=== PATIENT | female | born 1985 | race Caucasian/White ===

== ENCOUNTER 2018-05-17 16:45 | Emergency (ER) | payer OTHER ==
[2018-05-17 17:10] VITALS: RESP 18
--- NOTE | 2018-05-17 18:38 | ED ---
General Adult HPI - General Chief complaint: Abdominal Pain Stated complaint: hernia problem Source: patient Mode of arrival: ambulatory Limitations: no limitations - History of Present Illness Initial comments: Dictation was produced using [email or web address] dictation software. please excuse any grammatical, word or spelling errors. Chief Complaint: 32-year-old female withpast medical history presents with abdominal pain. History of Present Illness: Patient is a 32-year-old female. She has a history of hernia to the epigastrium. Patient was diagnosed with a ventral hernia in [place] approximately 1 year ago. Patient states she's had multiple episodes of hernia with successful reduction on 3 other occasions. Today she presents here today because her hernia did not go back. Patient states she's had pain since yesterday. She's had multiple episodes of nausea and vomiting. The ROS documented in this emergency department record has been reviewed and confirmed by me. Those systems with pertinent positive or negative responses have been documented in the HPI. All other systems are other negative and/or noncontributory. PHYSICAL EXAM: General Impression: Alert and oriented x3, acute distress secondary to pain HEENT: Normocephalic atraumatic, extra-ocular movements intact, pupils equal and reactive to light bilaterally, mucous membranes moist. Cardiovascular: Heart regular rate and rhythm, S1&S2 audible, no murmurs, rubs or gallops Chest: Lungs clear to auscultation bilaterally, no rhonchi, no wheeze, no rales Abdomen: Palpable mass to the epigastric area Musculoskeletal: Pulses present and equal in all extremities, no peripheral edema Motor: Power 5/5 bilaterally, no focal deficits noted Neurological: CN II-XII grossly intact, no focal motor or sensory deficits noted Skin: Intact with no visualized rashes Psych: Normal affect and mood ED course: 32-year-old female presents with ventral hernia. There was an attempt by myself to reduce the hernia. Reduction was unsuccessful. As upon arrival shows heart rate 109, worse vital signs within acceptable limits. CT of the abdomen and pelvis shows no evidence of abdominal wall hernia. There is also no evidence to show what that problem or masses on her right epigastric area. [id number] bedside ultrasound was obtained showing a well- circumscribed mass with similar echotexture to the surrounding skin area. This likely represents a lipoma or other benign mass. Patient given lidocaine patch. She is also given Dilaudid. Patient told to follow-up with primary care physician. She is told that she would benefit from surgery for removal of mass general surgeon if it continues to give her problems. Labs were unremarkable. Patient with for discharge. - Related Data Home Medications Medication Instructions Recorded Confirmed Ibuprofen [Motrin Ib] 600 mg PO Q6H PRN 05/17/18 05/17/18 Mirtazapine [Remeron] 45 mg PO HS 05/17/18 05/17/18 busPIRone HCl [Buspar] 10 mg PO TID 05/17/18 05/17/18 Allergies Allergy/AdvReac Type Severity Reaction Status Date / Time clarithromycin [From Biaxin] Allergy Vomiting Verified 05/17/18 18:34 morphine Allergy Rash/Hives Verified 05/17/18 18:34 Review of Systems ROS Statement: Those systems with pertinent positive or pertinent negative responses have been documented in the HPI. ROS Other: All systems not noted in ROS Statement are negative. Past Medical History Additional Past Medical History / Comment(s): hernia History of Any Multi-Drug Resistant Organisms: None Reported Past Surgical History: Appendectomy Past Psychological History: No Psychological Hx Reported Smoking Status: Current every day smoker Past Alcohol Use History: None Reported Past Drug Use History: None Reported General Exam Limitations: no limitations Course Vital Signs 05/17/18 05/17/18 17:06 19:44 Temperature 98.9 F Pulse Rate 109 H 91 Respiratory 18 18 Rate Blood Pressure 122/78 117/69 O2 Sat by Pulse 98 98 Oximetry Medical Decision Making - Lab Data Result diagrams: 05/17/18 18:45 05/17/18 18:45 Lab Results 05/17/18 05/17/18 05/17/18 Range/Units 18:45 18:45 19:00 WBC 5.5 (3.8-10.6) k/uL RBC 4.11 (3.80-5.40) m/uL Hgb 11.8 (11.4-16.0) gm/dL Hct 34.7 (34.0-46.0) % MCV 84.4 (80.0-100.0) fL MCH 28.8 (25.0-35.0) pg MCHC 34.1 (31.0-37.0) g/dL RDW 15.8 H (11.5-15.5) % Plt Count 224 (150-450) k/uL Neutrophils % 50 % Lymphocytes % 39 % Monocytes % 5 % Eosinophils % 4 % Basophils % 1 % Neutrophils # 2.8 (1.3-7.7) k/uL Lymphocytes # 2.2 (1.0-4.8) k/uL Monocytes # 0.3 (0-1.0) k/uL Eosinophils # 0.2 (0-0.7) k/uL Basophils # 0.0 (0-0.2) k/uL Sodium 140 (137-145) mmol/L Potassium 4.5 (3.5-5.1) mmol/L Chloride 111 H (98-107) mmol/L Carbon Dioxide 22 (22-30) mmol/L Anion Gap 7 mmol/L BUN 17 (7-17) mg/dL Creatinine 0.86 (0.52-1.04) mg/dL Est GFR (CKD-EPI)AfAm >90 (>60 ml/min/1.73 sqM) Est GFR (CKD-EPI)NonAf 89 (>60 ml/min/1.73 sqM) Glucose 95 (74-99) mg/dL Plasma Lactic Acid Bart (0.7-2.0) mmol/L Calcium 9.3 (8.4-10.2) mg/dL Urine HCG, Qual Not Detected (Not Detectd) 05/17/18 Range/Units 19:00 WBC (3.8-10.6) k/uL RBC (3.80-5.40) m/uL Hgb (11.4-16.0) gm/dL Hct (34.0-46.0) % MCV (80.0-100.0) fL MCH (25.0-35.0) pg MCHC (31.0-37.0) g/dL RDW (11.5-15.5) % Plt Count (150-450) k/uL Neutrophils % % Lymphocytes % % Monocytes % % Eosinophils % % Basophils % % Neutrophils # (1.3-7.7) k/uL Lymphocytes # (1.0-4.8) k/uL Monocytes # (0-1.0) k/uL Eosinophils # (0-0.7) k/uL Basophils # (0-0.2) k/uL Sodium (137-145) mmol/L Potassium (3.5-5.1) mmol/L Chloride (98-107) mmol/L Carbon Dioxide (22-30) mmol/L Anion Gap mmol/L BUN (7-17) mg/dL Creatinine (0.52-1.04) mg/dL Est GFR (CKD-EPI)AfAm (>60 ml/min/1.73 sqM) Est GFR (CKD-EPI)NonAf (>60 ml/min/1.73 sqM) Glucose (74-99) mg/dL Plasma Lactic Acid Bart 0.7 (0.7-2.0) mmol/L Calcium (8.4-10.2) mg/dL Urine HCG, Qual (Not Detectd) Disposition Clinical Impression: Mass of subcutaneous tissue Disposition: HOME SELF-CARE Condition: Good Instructions (If sedation given, give patient instructions): Soft Tissue Mass ( ED) Is patient prescribed a controlled substance at d/c from ED?: No Referrals: Salome Landon MD [Primary Care Provider] - 1-2 days Jerod Larsen MD [STAFF PHYSICIAN] - 1-2 days Time of Disposition: 21:14
[2018-05-17] MEDS ORDERED: ACETAMINOPHEN IV (For NPO) 1,000 MG in EMPTY BAG 1 BAG IVPB ONE (18:45)
[2018-05-17 18:59] LABS: Basophils % (A) 1 %; Eosinophils # (A) 0.2 k/uL (0-0.7); Eosinophils % (A) 4 %; HCT 34.7 % (34.0-46.0); HGB 11.8 gm/dL (11.4-16.0); Lymphocytes # (A) 2.2 k/uL (1.0-4.8); Lymphocytes % (A) 39 %; MCH 28.8 pg (25.0-35.0); MCHC 34.1 g/dL (31.0-37.0); MCV 84.4 fL (80.0-100.0); Mean Platelet Volume 7.3; Monocytes # (A) 0.3 k/uL (0-1.0); Monocytes % (A) 5 %; Neutrophils # (A) 2.8 k/uL (1.3-7.7); Neutrophils % (A) 50 %; Platelet Count 224 k/uL (150-450); RBC 4.11 m/uL (3.80-5.40); RDW 15.8 % (11.5-15.5); WBC 5.5 k/uL (3.8-10.6)
[2018-05-17 19:11] LABS: Anion Gap 7 mmol/L; Blood Urea Nitrogen 17 mg/dL (7-17); Calcium 9.3 mg/dL (8.4-10.2); Carbon Dioxide 22 mmol/L (22-30); Chloride 111 mmol/L (98-107); Glucose 95 mg/dL (74-99); Potassium 4.5 mmol/L (3.5-5.1); Sodium 140 mmol/L (137-145)
[2018-05-17] MEDS ORDERED: ONDANSETRON 4 MG/2 ML VIAL IVP STA (19:37)
[2018-05-17] MEDS ORDERED: HYDROmorphone 0.5 MG/0.5 ML SYRINGE IVP STA (19:49)
--- NOTE | 2018-05-17 20:39 | CT ---
EXAMINATION TYPE: CT abdomen pelvis w con DATE OF EXAM: 05/17/2018 COMPARISON: None HISTORY: HERNIA PAIN CT DLP: 995.4 mGycm Automated exposure control for dose reduction was used. TECHNIQUE: Helical acquisition of images was performed from the lung bases through the pelvis. CONTRAST: Performed without Oral Contrast and with IV Contrast, patient injected with 100 mL of Isovue 300. FINDINGS: Lung bases are clear. There is no pleural effusion. Heart size is normal. There is no pericardial eff usion. Stomach appears normal. Liver spleen pancreas appear normal. Bile ducts are not dilated. Gallbladder appears absent. There is no adrenal mass. Kidneys show satisfactory contrast opacification. There is no hydronephrosi s. Ureters are not dilated. There is no retroperitoneal adenopathy. Bladder distends smoothly. There is no inguinal hernia. There is no free fluid in the pelvis. Uterus is anteverted. There is no eviden ce of a pelvic mass. Lumbar spine is intact. There is no evidence of free air. There is no ascites. T here is no mesenteric edema. There is no evidence of free air. There is no ascites. I see no evidence of a bowel obstruction. I se e no abdominal wall hernia. There are clips apparently from appendectomy. Appendix is not seen. IMPRESSION: NEGATIVE CT SCAN OF THE ABDOMEN AND PELVIS. NO EVIDENCE OF AN ABDOMINAL HERNIA.
[2018-05-17] MEDS ORDERED: LIDOCAINE 5% PATCH TOPICAL STA (21:15)
[2018-05-17 21:42] VITALS: BP 104/58; PULSE 87; TEMP 98.3
== END 2018-05-17 21:40 | disposition home or self-care (01) ==
LOC: EC 16:45
DX: R19.06 Epigastric swelling, mass or lump (principal); R11.2 Nausea with vomiting, unspecified; R10.9 Unspecified abdominal pain; F17.200 Nicotine dependence, unspecified, uncomplicated; Z79.899 Other long term (current) drug therapy; Z88.5 Allergy status to narcotic agent; Z88.1 Allergy status to other antibiotic agents; Z90.49 Acquired absence of other specified parts of digestive tract
CPT/HCPCS: 36415; 80048; 83605; 85025; 81025; 74177; 99284; 96374; 96375 ×2; J2405; J0131; J1170; Q9967

== ENCOUNTER → 2018-08-25 | Outpatient (CLI) | payer OTHER | END | disposition home or self-care (01) | LOC: LABWHC1 08:04 | PROVIDERS: ATTEND Family Medicine | DX: F11.20 Opioid dependence, uncomplicated (principal) | CPT/HCPCS: 36415; 80358 ==

== ENCOUNTER 2018-10-15 11:38 | Emergency (ER) | payer OTHER ==
[2018-10-15 11:54] VITALS: RESP 18
[2018-10-15] MEDS ORDERED: SODIUM CHLORIDE 0.9% 1,000 ML IV STA (12:16)
[2018-10-15] MEDS ORDERED: ONDANSETRON 4 MG/2 ML VIAL IVP STA (12:16)
[2018-10-15] MEDS ORDERED: DIPH,PERTUS(ACELL)TETVAC-LF 0.5 ML VIAL IM ONE (12:25)
--- NOTE | 2018-10-15 12:56 | ED ---
General Adult HPI - General Chief complaint: Nausea/Vomiting/Diarrhea Stated complaint: Fever/vomiting Time Seen by Provider: 10/15/18 11:57 Source: patient, RN notes reviewed Mode of arrival: ambulatory Limitations: no limitations - History of Present Illness Initial comments: 32-year-old female presents emergency Department with chief complaint of nausea vomiting. Patient states that she has not felt well over the last few days. Patient states she is concerned because few days ago she had a cut from a amie piece of metal and she's not sure if this is correlating. Patient denies any medication changes. Patient denies any known fevers or chills. Patient has no dysuria no hematuria denies any chance . No chest pain or shortness br eath. Patient states she just feels fatigued, run down - Related Data Home Medications Medication Instructions Recorded Confirmed Mirtazapine [Remeron] 45 mg PO HS 05/17/18 10/15/18 busPIRone HCl [Buspar] 10 mg PO TID 05/17/18 10/15/18 Methadone HCl [Dolophine HCl] 120 mg PO DAILY 10/15/18 10/15/18 Allergies Allergy/AdvReac Type Severity Reaction Status Date / Time morphine Allergy Rash/Hives Verified 10/15/18 12:34 clarithromycin [From Biaxin] AdvReac Vomiting Verified 10/15/18 12:34 Review of Systems ROS Statement: Those systems with pertinent positive or pertinent negative responses have been documented in the HPI. ROS Other: All systems not noted in ROS Statement are negative. Past Medical History Additional Past Medical History / Comment(s): hernia History of Any Multi-Drug Resistant Organisms: None Reported Past Surgical History: Appendectomy, Cholecystectomy Additional Past Surgical History / Comment(s): lithotripsy Past Psychological History: Anxiety, Bipolar Smoking Status: Current every day smoker Past Alcohol Use History: None Reported Past Drug Use History: None Reported, Heroin General Exam Limitations: no limitations General appearance: alert, in no apparent distress Head exam: Present: atraumatic, normocephalic, normal inspection Eye exam: Present: normal appearance, PERRL, EOMI. Absent: scleral icterus, conjunctival injection, periorbital swelling ENT exam: Present: normal exam, normal oropharynx, mucous membranes moist Neck exam: Present: normal inspection, full ROM. Absent: tenderness, meningismus, lymphadenopathy Respiratory exam: Present: normal lung sounds bilaterally. Absent: respiratory distress, wheezes, rales, rhonchi, stridor Cardiovascular Exam: Present: regular rate, normal rhythm, normal heart sounds. Absent: systolic murmur, diastolic murmur, rubs, gallop, clicks GI/Abdominal exam: Present: soft, normal bowel sounds. Absent: distended, tenderness, guarding, rebound, rigid Neurological exam: Present: alert, oriented X3, CN II-XII intact Skin exam: Present: warm, dry, intact, normal color. Absent: rash Course Vital Signs 10/15/18 11:50 Temperature 98.5 F Pulse Rate 82 Respiratory 18 Rate Blood Pressure 141/79 O2 Sat by Pulse 96 Oximetry Medical Decision Making - Medical Decision Making 32-year-old female presented for generalized not feeling well. Patient has no remarkable labs. This may related to a viral illness. Patient was concern as she was cut by a piece of amie metal tetanus was updated. - Lab Data Result diagrams: 10/15/18 12:30 10/15/18 12:30 Lab Results 10/15/18 10/15/18 10/15/18 Range/Units 12:30 12:30 12:30 WBC 6.6 (3.8-10.6) k/uL RBC 4.17 (3.80-5.40) m/uL Hgb 11.8 (11.4-16.0) gm/dL Hct 35.7 (34.0-46.0) % MCV 85.7 (80.0-100.0) fL MCH 28.3 (25.0-35.0) pg MCHC 33.0 (31.0-37.0) g/dL RDW 13.8 (11.5-15.5) % Plt Count 283 (150-450) k/uL Neutrophils % 47 % Lymphocytes % 45 % Monocytes % 4 % Eosinophils % 2 % Basophils % 1 % Neutrophils # 3.1 (1.3-7.7) k/uL Lymphocytes # 3.0 (1.0-4.8) k/uL Monocytes # 0.2 (0-1.0) k/uL Eosinophils # 0.2 (0-0.7) k/uL Basophils # 0.0 (0-0.2) k/uL Sodium 144 (137-145) mmol/L Potassium 4.3 (3.5-5.1) mmol/L Chloride 111 H (98-107) mmol/L Carbon Dioxide 24 (22-30) mmol/L Anion Gap 9 mmol/L BUN 13 (7-17) mg/dL Creatinine 0.89 (0.52-1.04) mg/dL Est GFR (CKD-EPI)AfAm >90 (>60 ml/min/1.73 sqM) Est GFR (CKD-EPI)NonAf 85 (>60 ml/min/1.73 sqM) Glucose 97 (74-99) mg/dL Calcium 9.4 (8.4-10.2) mg/dL Total Bilirubin 0.2 (0.2-1.3) mg/dL AST 26 (14-36) U/L ALT 15 (9-52) U/L Alkaline Phosphatase 63 (38-126) U/L Total Protein 7.0 (6.3-8.2) g/dL Albumin 4.3 (3.5-5.0) g/dL Amylase 49 (30-110) U/L Lipase 31 (23-300) U/L Urine Color Urine Appearance (Clear) Urine pH (5.0-8.0) Ur Specific [place] (1.001-1.035) Urine Protein (Negative) Urine Glucose (UA) (Negative) Urine Ketones (Negative) Urine Blood (Negative) Urine Nitrite (Negative) Urine Bilirubin (Negative) Urine Urobilinogen (<2.0) mg/dL Ur Leukocyte Esterase (Negative) Urine RBC (0-5) /hpf Urine WBC (0-5) /hpf Ur Squamous Epith Cells (0-4) /hpf Urine Bacteria (None) /hpf Urine Mucus (None) /hpf Urine HCG, Qual Not Detected (Not Detectd) 10/15/18 Range/Units 12:30 WBC (3.8-10.6) k/uL RBC (3.80-5.40) m/uL Hgb (11.4-16.0) gm/dL Hct (34.0-46.0) % MCV (80.0-100.0) fL MCH (25.0-35.0) pg MCHC (31.0-37.0) g/dL RDW (11.5-15.5) % Plt Count (150-450) k/uL Neutrophils % % Lymphocytes % % Monocytes % % Eosinophils % % Basophils % % Neutrophils # (1.3-7.7) k/uL Lymphocytes # (1.0-4.8) k/uL Monocytes # (0-1.0) k/uL Eosinophils # (0-0.7) k/uL Basophils # (0-0.2) k/uL Sodium (137-145) mmol/L Potassium (3.5-5.1) mmol/L Chloride (98-107) mmol/L Carbon Dioxide (22-30) mmol/L Anion Gap mmol/L BUN (7-17) mg/dL Creatinine (0.52-1.04) mg/dL Est GFR (CKD-EPI)AfAm (>60 ml/min/1.73 sqM) Est GFR (CKD-EPI)NonAf (>60 ml/min/1.73 sqM) Glucose (74-99) mg/dL Calcium (8.4-10.2) mg/dL Total Bilirubin (0.2-1.3) mg/dL AST (14-36) U/L ALT (9-52) U/L Alkaline Phosphatase (38-126) U/L Total Protein (6.3-8.2) g/dL Albumin (3.5-5.0) g/dL Amylase (30-110) U/L Lipase (23-300) U/L Urine Color Yellow Urine Appearance Cloudy H (Clear) Urine pH 6.0 (5.0-8.0) Ur Specific [place] 1.019 (1.001-1.035) Urine Protein Trace H (Negative) Urine Glucose (UA) Negative (Negative) Urine Ketones Negative (Negative) Urine Blood Small H (Negative) Urine Nitrite Negative (Negative) Urine Bilirubin Negative (Negative) Urine Urobilinogen <2.0 (<2.0) mg/dL Ur Leukocyte Esterase Moderate H (Negative) Urine RBC 3 (0-5) /hpf Urine WBC 3 (0-5) /hpf Ur Squamous Epith Cells 9 H (0-4) /hpf Urine Bacteria Rare H (None) /hpf Urine Mucus Many H (None) /hpf Urine HCG, Qual (Not Detectd) Disposition Clinical Impression: Viral illness, Nausea & vomiting Disposition: HOME SELF-CARE Condition: Stable Instructions (If sedation given, give patient instructions): Acute Nausea and Vomiting (ED) Additional Instructions: Please return to the Emergency Department if symptoms worsen or any other concerns. Is patient prescribed a controlled substance at d/c from ED?: No Referrals: Salome Landon MD [Primary Care Provider] - 1-2 days Time of Disposition: 13:53
[2018-10-15 12:59] LABS: Basophils % (A) 1 %; Eosinophils # (A) 0.2 k/uL (0-0.7); Eosinophils % (A) 2 %; HCT 35.7 % (34.0-46.0); HGB 11.8 gm/dL (11.4-16.0); Lymphocytes % (A) 45 %; MCH 28.3 pg (25.0-35.0); MCV 85.7 fL (80.0-100.0); Mean Platelet Volume 6.8; Monocytes # (A) 0.2 k/uL (0-1.0); Monocytes % (A) 4 %; Neutrophils # (A) 3.1 k/uL (1.3-7.7); Neutrophils % (A) 47 %; Platelet Count 283 k/uL (150-450); RBC 4.17 m/uL (3.80-5.40); RDW 13.8 % (11.5-15.5); WBC 6.6 k/uL (3.8-10.6)
[2018-10-15 13:04] LABS: Appearance,Urine Cloudy (Clear); Bacteria,Urine Rare /hpf; Bilirubin,Urine Negative (Negative); Blood,Urine Small (Negative); Color,Urine Yellow; Glucose,Urine (UA) Negative (Negative); Ketones,Urine Negative (Negative); Leukocyte Esterase,Urine Moderate (Negative); Mucus,Urine Many /hpf; Nitrite,Urine Negative (Negative); Protein,Urine Trace (Negative); RBC,Urine 3 /hpf (0-5); Specific Gravity,Urine 1.019 (1.001-1.035); Squamous Epithelial Cell,Urine 9 /hpf (0-4); Urobilinogen,Urine <2.0 mg/dL (<2.0)
[2018-10-15 13:07] LABS: ALT 15 U/L (9-52); AST 26 U/L (14-36); African American GFR (CKD) >90 (>60 ml/min/1.73 sqM); Albumin 4.3 g/dL (3.5-5.0); Alkaline Phosphatase 63 U/L (38-126); Amylase 49 U/L (30-110); Anion Gap 9 mmol/L; Blood Urea Nitrogen 13 mg/dL (7-17); Calcium 9.4 mg/dL (8.4-10.2); Carbon Dioxide 24 mmol/L (22-30); Chloride 111 mmol/L (98-107); Glucose 97 mg/dL (74-99); Lipase 31 U/L (23-300); Potassium 4.3 mmol/L (3.5-5.1); Sodium 144 mmol/L (137-145); Total Bilirubin 0.2 mg/dL (0.2-1.3)
[2018-10-15 13:52] VITALS: BP 102/63; PULSE 63; TEMP 97.4
== END 2018-10-15 14:02 | disposition home or self-care (01) ==
LOC: EC 11:38
DX: B34.9 Viral infection, unspecified (principal); R11.2 Nausea with vomiting, unspecified; F31.9 Bipolar disorder, unspecified; F41.9 Anxiety disorder, unspecified; F17.200 Nicotine dependence, unspecified, uncomplicated; Z23 Encounter for immunization; Z79.899 Other long term (current) drug therapy; Z88.1 Allergy status to other antibiotic agents; Z88.5 Allergy status to narcotic agent; Z90.49 Acquired absence of other specified parts of digestive tract
CPT/HCPCS: 36415; 80053; 82150; 83690; 85025; 81001; 81025; 90715; 99284; 96374; 96361; 90471; J2405

== ENCOUNTER 2020-02-08 14:24 | Inpatient (IN) | payer MEDICAID, OTHER ==
[2020-02-08 14:56] LABS: Appearance,Urine Clear (Clear); Bilirubin,Urine Negative (Negative); Blood,Urine Negative (Negative); Color,Urine Yellow; Glucose,Urine (UA) Negative (Negative); Ketones,Urine Negative (Negative); Leukocyte Esterase,Urine Trace (Negative); Mucus,Urine Rare /hpf; Nitrite,Urine Negative (Negative); Protein,Urine Negative (Negative); RBC,Urine <1 /hpf (0-5); Specific Gravity,Urine 1.021 (1.001-1.035); Squamous Epithelial Cell,Urine 4 /hpf (0-4); Urobilinogen,Urine <2.0 mg/dL (<2.0); WBC,Urine 1 /hpf (0-5)
[2020-02-08 15:07] LABS: Amphetamine Screen,Urine Not Detected (NotDetected); Barbiturate Screen,Urine Not Detected (NotDetected); Benzodiazepines Screen,Urine Detected (NotDetected); Cocaine Screen,Urine Not Detected (NotDetected); Methadone Screen, Urine Detected (NotDetected); Opiate Screen,Urine Not Detected (NotDetected); Oxycodone Screen, Urine Not Detected (NotDetected); Phencyclidine Screen,Urine Not Detected (NotDetected); Tricyclic Antidepressant,Urine Detected (NotDetected); Urn Cannabinoid Scrn Not Detected (NotDetected)
[2020-02-08] MEDS ORDERED: LORazepam 1 MG TAB PO STA ×2 (15:31→20:20)
--- NOTE | 2020-02-08 18:13 | ED ---
Psych HPI - General Source: patient, EMS Mode of arrival: EMS <Tesha Vega - Last Filed: 02/09/20 10:03> <Jeancarlos Mandel - Last Filed: 02/09/20 14:01> - General Chief Complaint: Psychiatric Symptoms Stated Complaint: Mental Health Time Seen by Provider: 02/08/20 14:27 - History of Present Illness Initial Comments: 34 or female presenting today for chief complaint of suicidal ideation. Patient states she's been feeling depressed the past 2 days. She states that increased this morning she states she was looking at her roommates razor yesterday considering cutting her wrists. She states that this urge increased this morning and she had to resist. Patient denies suicide attempt. Patient denies ingestion of medications and attempted suicide. Patient states she presented here for help. She denies homicide ideation. Patient denies any recent fever, chills, shortness of breath, chest pain, back pain, abdominal pain, nausea or vomiting, numbness or tingling, dysuria or hematuria, constipation or diarrhea, headaches or visual changes, or any other complaints. (Tesha Vega) - Related Data Home Medications Medication Instructions Recorded Confirmed Mirtazapine [Remeron] 45 mg PO HS 05/17/18 02/08/20 busPIRone HCl [Buspar] 10 mg PO TID 05/17/18 02/08/20 Dicyclomine HCl 20 mg PO TID 02/08/20 02/08/20 Ergocalciferol (Vitamin D2) 50,000 unit PO TUTH 02/08/20 02/08/20 [Drisdol] Gabapentin [Neurontin] 200 mg PO TID 02/08/20 02/08/20 Levothyroxine Sodium 25 mcg PO DAILY 02/08/20 02/08/20 Pantoprazole Sodium [Protonix] 40 mg PO DAILY 02/08/20 02/08/20 QUEtiapine [SEROquel] 75 mg PO HS 02/08/20 02/08/20 Allergies Allergy/AdvReac Type Severity Reaction Status Date / Time clonidine Allergy Rash/Hives Verified 02/08/20 19:01 metoclopramide [From Reglan] Allergy Rash/Hives Verified 02/08/20 19:01 morphine Allergy Rash/Hives Verified 11/07/20 19:01 clarithromycin [From Biaxin] AdvReac Vomiting Verified 02/08/20 19:01 Review of Systems ROS Other: All systems not noted in ROS Statement are negative. <Marley Vegamanny Ronquillo - Last Filed: 02/09/20 10:03> ROS Other: All systems not noted in ROS Statement are negative. <Jeancarlos Mandel - Last Filed: 02/09/20 14:01> ROS Statement: Those systems with pertinent positive or pertinent negative responses have been documented in the HPI. Past Medical History Additional Past Medical History / Comment(s): hernia History of Any Multi-Drug Resistant Organisms: None Reported Past Surgical History: Appendectomy, Cholecystectomy Additional Past Surgical History / Comment(s): lithotripsy Past Psychological History: Anxiety, Bipolar Past Alcohol Use History: None Reported Past Drug Use History: None Reported, Heroin <SilviaTesha L - Last Filed: 02/09/20 10:03> General Exam Limitations: no limitations <EduardoTesha de dios - Last Filed: 02/09/20 10:03> - General Exam Comments Initial Comments: General: The patient is awake and alert, in no distress Eye: +3 mm pupils are equal, round and reactive to light, extra-ocular movements are intact. No nystagmus. There is normal conjunctiva bilaterally. No signs of icterus. Ears, nose, mouth and throat: There are moist mucous membranes and no oral lesions. Neck: The neck is supple, there is no tenderness or JVD. Cardiovascular: There is a regular rate and rhythm. No murmur, rub or gallop is appreciated. Respiratory: Lungs are clear to auscultation, respirations are non-labored, breath sounds are equal. No wheezes, stridor, rales, or rhonchi. Gastrointestinal: Soft, non-distended, non-tender abdomen without masses or organomegaly noted. There is no rebound or guarding present. Musculoskeletal: Normal ROM, no tenderness. Strength 5/5. Sensation intact. radial pulses equal bilaterally 2+. Neurological: A&O x 3. CN II-XII intact grossly, There are no obvious motor or sensory deficits. Coordination appears grossly intact. Speech is normal. Skin: Skin is warm and dry and no rashes or lesions are noted. Psychiatric: Cooperative, flat affect (Tesha Vega) Course <Jeancarlos Mandel - Last Filed: 02/09/20 14:01> Vital Signs 02/08/20 02/08/20 02/08/20 14:26 19:17 23:38 Temperature 98.2 F 98.3 F 98.1 F Pulse Rate 103 H 83 88 Respiratory 18 16 16 Rate Blood Pressure 137/84 118/59 112/65 O2 Sat by Pulse 94 L 96 97 Oximetry 02/09/20 02/09/20 02/09/20 06:58 08:55 13:39 Temperature 98.3 F 97.7 F 97.7 F Pulse Rate 89 92 92 Respiratory 18 14 14 Rate Blood Pressure 125/62 120/59 115/62 O2 Sat by Pulse 97 96 98 Oximetry - Reevaluation(s) Reevaluation #1: 02/09/20 14:01 The patient was evaluated by the psychiatric service and will be admitted for inpatient care and treatment. (Jeancarlos Mandel) Medical Decision Making <Tesha Vega - Last Filed: 02/09/20 10:03> - Medical Decision Making 34yo female presenting for cc of suicidal ideation with plan. Petitioned by EPS nurse. Patient will be admitted for inpatient services. patient agreeable. (Tesha Vega) - Lab Data Lab Results 02/08/20 02/08/20 Range/Units 14:50 14:50 Urine Color Yellow Urine Appearance Clear (Clear) Urine pH 6.0 (5.0-8.0) Ur Specific [place] 1.021 (1.001-1.035) Urine Protein Negative (Negative) Urine Glucose (UA) Negative (Negative) Urine Ketones Negative (Negative) Urine Blood Negative (Negative) Urine Nitrite Negative (Negative) Urine Bilirubin Negative (Negative) Urine Urobilinogen <2.0 (<2.0) mg/dL Ur Leukocyte Esterase Trace H (Negative) Urine RBC <1 (0-5) /hpf Urine WBC 1 (0-5) /hpf Ur Squamous Epith Cells 4 (0-4) /hpf Urine Mucus Rare H (None) /hpf Urine HCG, Qual Not Detected (Not Detectd) Urine Opiates Screen Not Detected (NotDetected) Ur Oxycodone Screen Not Detected (NotDetected) Urine Methadone Screen Detected H (NotDetected) Ur Propoxyphene Screen Not Detected (NotDetected) Ur Barbiturates Screen Not Detected (NotDetected) U Tricyclic Antidepress Detected H (NotDetected) Ur Phencyclidine Scrn Not Detected (NotDetected) Ur Amphetamines Screen Not Detected (NotDetected) U Methamphetamines Scrn Not Detected (NotDetected) U Benzodiazepines Scrn Detected H (NotDetected) Urine Cocaine Screen Not Detected (NotDetected) U Marijuana (THC) Screen Not Detected (NotDetected) Disposition <Tesah Vega - Last Filed: 02/09/20 10:03> <Jeancarlos Mandel - Last Filed: 02/09/20 14:01> Clinical Impression: Depression Disposition: TRANSFER TO PSYCH HOSP/UNIT Condition: Fair
[2020-02-08] MEDS: MIRTAZAPINE 45 MG TABLET PO SCH (21:55)
[2020-02-08] MEDS: busPIRone HCl 10 MG TAB PO SCH (21:56)
[2020-02-08] MEDS: DICYCLOMINE 20 MG TAB PO SCH (21:56)
[2020-02-08] MEDS: GABAPENTIN 100 MG CAP PO SCH (22:00)
[2020-02-09] MEDS ORDERED: LORazepam 1 MG TAB PO STA ×2 (06:17→11:29)
[2020-02-09] MEDS: LEVOTHYROXINE 25 MCG TAB PO SCH (06:55)
[2020-02-09] MEDS: busPIRone HCl 10 MG TAB PO SCH ×3 (10:10→20:21)
[2020-02-09] MEDS: DICYCLOMINE 20 MG TAB PO SCH ×3 (10:11→21:26)
[2020-02-09] MEDS: GABAPENTIN 100 MG CAP PO SCH ×3 (10:11→20:20)
[2020-02-09] MEDS: PANTOPRAZOLE 40 MG TABLET PO SCH (10:11)
[2020-02-09] MEDS ORDERED: METHADONE 10 MG TAB PO PRN (10:41)
[2020-02-09] MEDS ORDERED: METHADONE 10 MG TAB PO SCH (11:45)
[2020-02-09] MEDS ORDERED: ZIPRASIDONE 20 MG VIAL IM PRN (14:28)
[2020-02-09] MEDS ORDERED: MAGNESIUM HYDROXIDE 2,400 MG/10 ML CUP PO PRN (14:28)
[2020-02-09] MEDS ORDERED: METHADONE 10 MG TAB PO ONE (14:34)
[2020-02-09] MEDS: NICOTINE 7MG/24HR PATCH TRANSDERM SCH (15:31)
[2020-02-09] MEDS ORDERED: QUEtiapine 50 MG TAB PO ONE ×2 (15:45→18:00)
[2020-02-09] MEDS: QUEtiapine 100 MG TAB PO SCH (20:20)
--- NOTE | 2020-02-09 20:23 | P.CONS ---
History of Present Illness - Reason for Consult Consult date: 02/09/20 - History of Present Illness The patient was seen with educational psychologist The patient is a 34-year-old female with a PMH of EtOH abuse, opiate abuse (on methadone) who presented to the emergency room with complaints of depression and suicidal ideation. The patient was seen and evaluated on the mental health unit. The patient notes that she was recently discharged from rehab facility where she had self checked and due to her alcohol abuse. She reports her last drink was roughly 10 days ago. She had previously been drinking 1 pint of hard liquor daily. She denied any active complaints at time of interview. She denied abdominal pain, nausea, vomiting, chest pain, shortness breath, cough, fever, chills. Review of Systems Pertinent positives and negatives as discussed in HPI, a complete review of systems was performed and all other systems are negative. Past Medical History Additional Past Medical History / Comment(s): hernia History of Any Multi-Drug Resistant Organisms: None Reported Past Surgical History: Appendectomy, Cholecystectomy Additional Past Surgical History / Comment(s): lithotripsy Past Psychological History: Anxiety, Bipolar Past Alcohol Use History: None Reported Past Drug Use History: None Reported, Heroin Medications and Allergies Home Medications Medication Instructions Recorded Confirmed Type Mirtazapine [Remeron] 45 mg PO HS 05/17/18 02/08/20 History busPIRone HCl [Buspar] 10 mg PO TID 05/17/18 02/08/20 History Dicyclomine HCl 20 mg PO TID 02/08/20 02/08/20 History Ergocalciferol (Vitamin D2) 50,000 unit PO TUTH 02/08/20 02/08/20 History [Drisdol] Gabapentin [Neurontin] 200 mg PO TID 02/08/20 02/08/20 History Levothyroxine Sodium 25 mcg PO DAILY 02/08/20 02/08/20 History Pantoprazole Sodium [Protonix] 40 mg PO DAILY 02/08/20 02/08/20 History QUEtiapine [SEROquel] 75 mg PO HS 02/08/20 02/08/20 History Allergies Allergy/AdvReac Type Severity Reaction Status Date / Time clonidine Allergy Rash/Hives Verified 02/08/20 19:01 metoclopramide [From Reglan] Allergy Rash/Hives Verified 02/08/20 19:01 morphine Allergy Rash/Hives Verified 02/08/20 19:01 clarithromycin [From Biaxin] AdvReac Vomiting Verified 02/08/20 19:01 Physical Exam Vitals: Vital Signs Temp Pulse Pulse Resp BP BP Pulse Ox 02/09/20 19:02 97.8 F 02/09/20 13:57 98.7 F 94 15 144/111 97 02/09/20 13:39 97.7 F 92 14 115/62 98 02/09/20 08:55 97.7 F 92 14 120/59 96 02/09/20 06:58 98.3 F 89 18 125/62 97 02/08/20 23:38 98.1 F 88 16 112/65 97 General: non toxic, no distress, appears at stated age, morbidly obese Derm: no unusual rashes/lesions no unusual ecchymoses, warm, dry Head: atraumatic, normocephalic, symmetric Eyes: EOMI, no lid lag, anicteric sclera, pupils equal round reactive to light ENT: Nose and ears atraumatic, no thrush, no pharyngeal erythema Neck: No thyromegaly, no cervical lymphadenopathy, trachea midline, supple Mouth: no lip lesion, mucus membranes moist Cardiovascular: S1S2 reg, no murmur, positive posterior tibial pulse bilateral, no edema, capillary refill less than 2 seconds Lungs: CTA bilateral, no rhonchi, no rales , no accessory muscle use Abdominal: soft, nontender to palpation, no guarding, no appreciable organomegaly, normal bowel sounds Ext: no gross muscle atrophy, muscle strength 5 out of 5 in all 4 extremities grossly, no contractures, Neuro: CN II-XI grossly intact, light touch intact all 4 extremities, finger to nose within normal limits, Psych: Alert, oriented, appropriate affect Assessment and Plan Plan: Hypothyroidism -Continue with home Synthroid dose EtOH abuse -Encouraged patient on her decision to quit and seeking help -Start daily multivitamin History of opiate abuse -Continue with home methadone dose Tobacco abuse -Advised on the importance of cessation -Nicotine patch when necessary Depression and suicidal ideation -As per psychiatry
[2020-02-09] MEDS ORDERED: QUEtiapine 25 MG TAB PO SCH (21:00)
[2020-02-09] MEDS: MIRTAZAPINE 45 MG TABLET PO SCH (21:26)
[2020-02-10] MEDS: LEVOTHYROXINE 25 MCG TAB PO SCH (07:00)
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
[2020-02-10] MEDS ORDERED: VORTIOXETINE HYDROBROMIDE 10 MG TABLET PO SCH (09:00)
[2020-02-10] MEDS: busPIRone HCl 10 MG TAB PO SCH ×2 (09:19→20:50)
[2020-02-10] MEDS: PANTOPRAZOLE 40 MG TABLET PO SCH (09:19)
[2020-02-10] MEDS: GABAPENTIN 100 MG CAP PO SCH ×3 (09:19→21:33)
[2020-02-10] MEDS: DICYCLOMINE 20 MG TAB PO SCH ×3 (09:19→21:33)
[2020-02-10] MEDS: MULTIVITAMINS, THERA 1 EACH TAB PO SCH (09:19)
[2020-02-10] MEDS: NICOTINE 7MG/24HR PATCH TRANSDERM SCH (09:19)
[2020-02-10] MEDS: QUEtiapine 50 MG TAB PO SCH ×2 (09:19→13:01)
[2020-02-10] MEDS: METHADONE 10 MG TAB PO SCH (09:20)
[2020-02-10 10:10] LABS: Albumin 4.6 g/dL (3.5-5.0); Calcium 9.8 mg/dL (8.4-10.2); Potassium 4.4 mmol/L (3.5-5.1); Total Bilirubin 0.5 mg/dL (0.2-1.3); Total Protein 7.8 g/dL (6.3-8.2)
[2020-02-10 10:19] LABS: Basophils # (A) 0.1 k/uL (0-0.2); Basophils % (A) 1 %; Eosinophils # (A) 0.2 k/uL (0-0.7); Eosinophils % (A) 3 %; HCT 43.4 % (34.0-46.0); HGB 14.2 gm/dL (11.4-16.0); Lymphocytes # (A) 2.9 k/uL (1.0-4.8); Lymphocytes % (A) 40 %; MCH 27.2 pg (25.0-35.0); MCHC 32.8 g/dL (31.0-37.0); MCV 82.8 fL (80.0-100.0); Mean Platelet Volume 7.3; Monocytes # (A) 0.3 k/uL (0-1.0); Monocytes % (A) 4 %; Neutrophils # (A) 3.7 k/uL (1.3-7.7); Neutrophils % (A) 51 %; Platelet Count 351 k/uL (150-450); RBC 5.24 m/uL (3.80-5.40); RDW 14.2 % (11.5-15.5); WBC 7.2 k/uL (3.8-10.6)
--- NOTE | 2020-02-10 14:41 | P.PN ---
Progress Note - Text Progress Note Date: 02/10/20 Interval History: Patient was seen taking part in group this afternoon and was directable and ag reeable to speak with designer writer in the office. Patient appeared to have anxiety and a depressed affect when she is a good designer writer. She was calm and appropriate during the conversation. She mentioned several overwhelming stressors in her life which led her to come in the hospital. She spoke about having suicidal thoughts at [facility] and thought about taking her roommate's razor and cutting herself. She states that she continues to feel depressed and anxious. She states that she is having poor sleep at night. She claims that she has been going up through a lot lately at home. She also claims that she had relapsed on drugs recently. She claims that she has been trying to go to groups and participated best she can. At this time patient denies any suicidal or homical ideations, intent or plan. Patient denies any auditory, visual hallucinations. Patient denies any side effects from the medications and has been compliant with meds. Mental Status Exam: General Appearance: Patient appears to be overweight, stated age is alert, directable, and cooperative. Improving hygiene and grooming. Behavior: Patient is calmly seated without any agitated behavior. Appears to be in mild distress. Speech: Patient's speech is fluent and nonpressured. Mood/Affect: Mood is depressed and anxious, affect is congruent and constricted. Suicidality/Homicidality: Patient denies having any suicidal or homicidal ideation intent or plan. Perceptions: Patient denies any visual hallucinations and denies any auditory hallucinations Though content/process: There is no evidence of any delusional thought content and thought process is linear and goal-directed. Preoccupied with her symptoms and medications. Memory and concentration: AOX3, grossly intact for the purposes of this session Judgment and insight: Poor, Improving mildly Assessment Depressive disorder unspecified, rule out bipolar depression Anxiety disorder unspecified Opioid dependence, currently on agonist therapy Alcohol abuse nicotine dependence Plan: -Patient continues to meet criteria for inpatient psychiatric admission for symptom stabilization and safety. Patient has signed adult voluntary form and medication consent and was placed in patient's chart. -Medications: Continue with Seroquel 50 mg twice a day +150 mg daily at bedtime for mood stabilization, BuSpar increased to 30 mg twice a day for anxiety. Con tinue the Remeron 45 mg daily at bedtime for insomnia/mood, started on Zoloft 50 mg daily for mood/anxiety. Added Benadryl 25 mg daily at bedtime for insomnia. -Patient claims that she is receiving daily dosing at [facility] for methadone, she is currently on 120 mg daily. She states that she is on a higher dose. Will ask [facility] to fax confirmation of this. -Ordered EKG to check QTc interval as patient is on methadone. -When necessary Ativan and Oscardon for agitation/aggression. -NRT - nicotine patch -SW on board for discharge planning. Encouraged the patient to participate in milieu. Patient came to the unit from [facility] and can return once she is psychiatrically stable. green chain worker to reach out to [facility] to find out patient's exact methadone dosing as patient is claiming that she is on 145 mg daily.
[2020-02-10] MEDS: SERTRALINE 50 MG TAB PO SCH (15:38)
[2020-02-10 15:53] LABS: Hemoglobin A1C 5.7 % (4.0-6.0)
[2020-02-10] MEDS: LORazepam 1 MG TAB PO PRN (17:53)
[2020-02-10] MEDS: MAG HYDROX/AL HYDROX/SIMETH 30 ML CUP PO PRN (17:53)
[2020-02-10] MEDS: ACETAMINOPHEN TAB 325 MG TAB PO PRN (17:53)
[2020-02-10] MEDS: QUEtiapine 100 MG TAB PO SCH (20:49)
[2020-02-10] MEDS: MIRTAZAPINE 45 MG TABLET PO SCH (20:51)
[2020-02-10] MEDS ORDERED: diphenhydrAMINE 25 MG CAP PO SCH (21:00)
[2020-02-11] MEDS: LEVOTHYROXINE 25 MCG TAB PO SCH (06:29)
[2020-02-11] MEDS: METHADONE 10 MG TAB PO SCH (08:47)
[2020-02-11] MEDS: QUEtiapine 50 MG TAB PO SCH ×2 (08:48→15:05)
[2020-02-11] MEDS: GABAPENTIN 100 MG CAP PO SCH ×3 (08:48→20:17)
[2020-02-11] MEDS: PANTOPRAZOLE 40 MG TABLET PO SCH (08:48)
[2020-02-11] MEDS: NICOTINE 7MG/24HR PATCH TRANSDERM SCH (08:48)
[2020-02-11] MEDS: SERTRALINE 50 MG TAB PO SCH (08:48)
[2020-02-11] MEDS: MULTIVITAMINS, THERA 1 EACH TAB PO SCH (08:48)
[2020-02-11] MEDS: ERGOCALCIFEROL 50,000 UNIT CAP PO SCH (08:49)
[2020-02-11] MEDS: DICYCLOMINE 20 MG TAB PO SCH ×3 (08:49→20:18)
[2020-02-11] MEDS: busPIRone HCl 10 MG TAB PO SCH ×2 (09:35→20:17)
--- NOTE | 2020-02-11 10:29 | P.PN ---
Progress Note - Text Progress Note Date: 02/11/20 Interval History: Patient was seen coming out of her room this morning and was directable and ag reeable to speak with junior technical writer in the office. Patient appeared to have anxiety once again today. She states that she is continuing to feel depressed and more anxious and described ongoing opioid withdrawal symptoms including poor sleep, restlessness and diarrhea. She claims she is also having cravings for her methadone and was somewhat irritable with junior technical writer as to why her dose was initially decreased. Patient did have an EKG yesterday which showed her QTc interval at 457 with normal sinus rhythm. She was calm and appropriate during the conversation however did appear to be fidgeting. She states that she has not been going to groups due to the fact that other people in the group were not wearing masks and not distancing themselves. She states that she was feeling uncomfortable and wanted to remain in her room. She claims that she does not know if the medication is helping her yet. He was fairly preoccupied with having her methadone increased back to her previous dose. She today again claims that she has been having suicidal thoughts however no intent or plan and would not feel safe leaving the hospital. She states that she is having poor sleep at night and agreeable to have her Benadryl increased. Patient denies any homical ideations, intent or plan. Patient denies any auditory, visual hallucinations. Patient denies any side effects from the medications and has been compliant with meds. Mental Status Exam: General Appearance: Patient appears to be overweight, stated age is alert, directable, and somewhat irritable today. Improving hygiene and grooming. Behavior: Patient is calmly seated without any agitated behavior. Appears to be in mild distress. Somewhat irritable today Speech: Patient's speech is fluent and nonpressured. Mood/Affect: Mood is depressed and anxious, affect is congruent Suicidality/Homicidality: Patient denies having any suicidal or homicidal ideation intent or plan. Perceptions: Patient denies any visual hallucinations and denies any auditory hallucinations Though content/process: There is no evidence of any delusional thought content and thought process is linear and goal-directed. Preoccupied with her symptoms and medications. Memory and concentration: AOX3, grossly intact for the purposes of this session Judgment and insight: Poor, Improving mildly Assessment Depressive disorder unspecified, rule out bipolar depression Anxiety disorder unspecified Opioid dependence, currently on agonist therapy Alcohol abuse nicotine dependence Plan: -Patient continues to meet criteria for inpatient psychiatric admission for symptom stabilization and safety. Patient has signed adult voluntary form and medication consent and was placed in patient's chart. -Medications: Continue with Seroquel 50 mg twice a day +150 mg daily at bedtime for mood stabilization, BuSpar 30 mg twice a day for anxiety. Continue the Remeron 45 mg daily at bedtime for insomnia/mood, continue with Zoloft 50 mg daily for mood/anxiety. Increased Benadryl 50 mg daily at bedtime for insomnia. -Patient has been dosing at [facility] for methadone, she is currently on 120 mg daily, this will be increased by 10 mg today and another 10 mg tomorrow. As per faxed documentation from [facility], patient was on a previous dose of 145 mg being dosed daily. -EKG checked on 02/10/2020 - QTc interval at 457 with normal sinus rhythm -When necessary Ativan and Geodon for agitation/aggression. -NRT - nicotine patch -SW on board for discharge planning. Encouraged the patient to participate in milieu. Patient came to the unit from [facility] and can return once she is psychiatrically stable.
[2020-02-11] MEDS ORDERED: METHADONE 10 MG TAB PO ONE (10:30)
[2020-02-11] MEDS: ACETAMINOPHEN TAB 325 MG TAB PO PRN (17:43)
[2020-02-11] MEDS: LORazepam 1 MG TAB PO PRN (18:58)
[2020-02-11] MEDS: diphenhydrAMINE 50 MG CAP PO SCH (20:18)
[2020-02-11] MEDS: QUEtiapine 100 MG TAB PO SCH (20:18)
[2020-02-11] MEDS: MIRTAZAPINE 45 MG TABLET PO SCH (20:18)
[2020-02-12] MEDS: LEVOTHYROXINE 25 MCG TAB PO SCH (06:38)
[2020-02-12] MEDS: NICOTINE 7MG/24HR PATCH TRANSDERM SCH (08:41)
[2020-02-12] MEDS: SERTRALINE 50 MG TAB PO SCH (08:42)
[2020-02-12] MEDS: QUEtiapine 50 MG TAB PO SCH ×2 (08:42→12:58)
[2020-02-12] MEDS: PANTOPRAZOLE 40 MG TABLET PO SCH (08:42)
[2020-02-12] MEDS: busPIRone HCl 10 MG TAB PO SCH ×2 (08:42→21:34)
[2020-02-12] MEDS: MULTIVITAMINS, THERA 1 EACH TAB PO SCH (08:42)
[2020-02-12] MEDS: GABAPENTIN 100 MG CAP PO SCH ×3 (08:42→21:34)
[2020-02-12] MEDS ORDERED: METHADONE 10 MG TAB PO SCH (09:00)
[2020-02-12] MEDS: DICYCLOMINE 20 MG TAB PO SCH ×3 (09:34→21:36)
--- NOTE | 2020-02-12 10:17 | P.PN ---
Progress Note - Text Progress Note Date: 02/12/20 Interval History: Patient was seen taking part in group this morning and was directable and agre eable to speak with contract technical writer in the office. She states that she is continuing to feel depressed and anxious today. She claims that she is worried about where she will go when she is discharged from the hospital. She states that yesterday she found out that she would not be able to go back to [facility] as they believe that she needs more mental health treatment. Patient claims that she would not be allowed back for at least 6 months. She did claim however that her opioid withdrawal symptoms have been improving since her dose has been increasing. She appeared to be calmer today during the interview and states that she is able to go to groups more today as she feels that people are now wearing masks and she feels more comfortable in them. She today again claims that she has been having suicidal thoughts however no intent or plan and would not feel safe leaving the hospital. She states that she is having poor sleep at night and agreeable to have her Benadryl increased. Patient denies any homical ideations, intent or plan. Patient denies any auditory, visual hallucinations. Patient denies any side effects from the medications and has been compliant with meds. Mental Status Exam: General Appearance: Patient appears to be overweight, stated age is alert, directable, and less irritable today. Improving hygiene and grooming. Behavior: Patient is calmly seated without any agitated behavior. Appears to be in mild distress. Less irritable today Speech: Patient's speech is fluent and nonpressured. Mood/Affect: Mood is depressed and anxious, affect is congruent Suicidality/Homicidality: Patient denies having any suicidal or homicidal ideation intent or plan. Perceptions: Patient denies any visual hallucinations and denies any auditory hallucinations Though content/process: There is no evidence of any delusional thought content and thought process is linear and goal-directed. Preoccupied with her symptoms and medications. Memory and concentration: AOX3, grossly intact for the purposes of this session Judgment and insight: Poor, Improving mildly Assessment Depressive disorder unspecified, rule out bipolar depression Anxiety disorder unspecified Opioid dependence, currently on agonist therapy Alcohol abuse nicotine dependence Plan: -Patient continues to meet criteria for inpatient psychiatric admission for symptom stabilization and safety. Patient has signed adult voluntary form and medication consent and was placed in patient's chart. -Medications: Increased Seroquel 50 mg twice a day + 200 mg daily at bedtime for mood stabilization, BuSpar 30 mg twice a day for anxiety. Continue the Remeron 45 mg daily at bedtime for insomnia/mood, increased Zoloft 100 mg daily for mood/anxiety. Continue with Benadryl 50 mg daily at bedtime for insomnia. -Increased patient's methadone to her home dose of 145 mg being dosed daily. -EKG checked on 02/10/2020 - QTc interval at 457 with normal sinus rhythm -When necessary Atliset and Renetta for agitation/aggression. -NRT - nicotine patch -SW on board for discharge planning. Encouraged the patient to participate in milieu. Will discuss with transition social worker the plan for discharge and if patient can still go back to [facility] or will need to explore other options.
[2020-02-12] MEDS: LORazepam 1 MG TAB PO PRN ×2 (10:58→19:19)
[2020-02-12] MEDS: QUEtiapine 200 MG TAB PO SCH (21:34)
[2020-02-12] MEDS: MIRTAZAPINE 45 MG TABLET PO SCH (21:34)
[2020-02-12] MEDS: diphenhydrAMINE 50 MG CAP PO SCH (21:34)
[2020-02-13] MEDS: LEVOTHYROXINE 25 MCG TAB PO SCH (06:52)
[2020-02-13] MEDS: QUEtiapine 50 MG TAB PO SCH ×2 (08:21→13:39)
[2020-02-13] MEDS: NICOTINE 7MG/24HR PATCH TRANSDERM SCH (08:21)
[2020-02-13] MEDS: METHADONE 10 MG TAB PO SCH (08:22)
[2020-02-13] MEDS: PANTOPRAZOLE 40 MG TABLET PO SCH ×2 (08:25→08:32)
[2020-02-13] MEDS: ERGOCALCIFEROL 50,000 UNIT CAP PO SCH (08:25)
[2020-02-13] MEDS: DICYCLOMINE 20 MG TAB PO SCH ×3 (08:31→21:31)
[2020-02-13] MEDS: SERTRALINE 100 MG TAB PO SCH (08:32)
[2020-02-13] MEDS: GABAPENTIN 100 MG CAP PO SCH ×3 (08:32→20:44)
[2020-02-13] MEDS: busPIRone HCl 10 MG TAB PO SCH ×2 (08:32→20:44)
[2020-02-13] MEDS: MULTIVITAMINS, THERA 1 EACH TAB PO SCH (08:34)
--- NOTE | 2020-02-13 10:04 | P.PN ---
Progress Note - Text Progress Note Date: 02/13/20 Interval History: Patient was seen taking part in group this morning and was directable and agre eable to speak with technical proposal writer in the office. She claims that she is feeling mild improvement with regards to her depression and anxiety however continues to be preoccupied with her discharge planning. She states that she was able to sleep a little bit better last night approximately 5 hours which she felt happy about. She claims that she is continuing to have suicidal thoughts however they are decreasing in intensity and she states that she is using coping skills to distract herself which she is learning in group. She did claim also that she had 2 instances in the past 2 days where she forgot the name of her medications and also the name of [facility] which he found bizarre. She today again claims that she has been having suicidal thoughts however no intent or plan and would not feel safe leaving the hospital. Patient also claimed that she was feeling "swollen" today and states that she has been drinking approximately 5-6 melchor per day. Patient denies any homical ideations, intent or plan. Patient denies any auditory, visual hallucinations. Patient denies any side effects from the medications and has been compliant with meds. Mental Status Exam: General Appearance: Patient appears to be overweight, stated age is alert, directable, and attempts to be more cooperative. Improving hygiene and grooming. Behavior: Patient is calmly seated without any agitated behavior. Appears to be in mild distress. Speech: Patient's speech is fluent and nonpressured. Mood/Affect: Mood is depressed and anxious, mildly improving, affect is congruent Suicidality/Homicidality: Patient denies having any suicidal or homicidal ideation intent or plan. Perceptions: Patient denies any visual hallucinations and denies any auditory hallucinations Though content/process: There is no evidence of any delusional thought content and thought process is linear and goal-directed. Preoccupied with her symptoms and medications. Memory and concentration: AOX3, grossly intact for the purposes of this session Judgment and insight: Poor, Improving mildly Assessment Depressive disorder unspecified, rule out bipolar depression Anxiety disorder unspecified Opioid dependence, currently on agonist therapy Alcohol abuse nicotine dependence Plan: -Patient continues to meet criteria for inpatient psychiatric admission for symptom stabilization and safety. Patient has signed adult voluntary form and medication consent and was placed in patient's chart. -Medications: Continue with Seroquel 50 mg twice a day + 200 mg daily at bedtime for mood stabilization, BuSpar 30 mg twice a day for anxiety. Continue the Remeron 45 mg daily at bedtime for insomnia/mood, continue with Zoloft 100 mg daily for mood/anxiety. Continue with Benadryl 50 mg daily at bedtime for insomnia. -Continue with methadone at her home dose of 145 mg being dosed daily. -EKG checked on 02/10/2020 - QTc interval at 457 with normal sinus rhythm -Ordered basic metabolic panel to check electrolytes, advised patient to cut back on her water intake today to 3 cups per day. -When necessary Ativan and Geodon for agitation/aggression. -NRT - nicotine patch -SW on board for discharge planning. Encouraged the patient to participate in milieu. Will discuss with secondary social studies teacher the plan for discharge and if patient can still go back to [facility] or will need to explore other options.
[2020-02-13 12:28] LABS: Calcium 9.7 mg/dL (8.4-10.2); Potassium 4.5 mmol/L (3.5-5.1)
[2020-02-13] MEDS: ACETAMINOPHEN TAB 325 MG TAB PO PRN (16:03)
[2020-02-13] MEDS: diphenhydrAMINE 50 MG CAP PO SCH (20:44)
[2020-02-13] MEDS: QUEtiapine 200 MG TAB PO SCH (20:44)
[2020-02-13] MEDS: MIRTAZAPINE 45 MG TABLET PO SCH (21:31)
[2020-02-14] MEDS: LEVOTHYROXINE 25 MCG TAB PO SCH (06:44)
[2020-02-14] MEDS: SERTRALINE 100 MG TAB PO SCH (08:15)
[2020-02-14] MEDS: busPIRone HCl 10 MG TAB PO SCH (08:15)
[2020-02-14] MEDS: MULTIVITAMINS, THERA 1 EACH TAB PO SCH (08:15)
[2020-02-14] MEDS: GABAPENTIN 100 MG CAP PO SCH ×3 (08:15→21:14)
[2020-02-14] MEDS: DICYCLOMINE 20 MG TAB PO SCH ×3 (08:15→21:14)
[2020-02-14] MEDS: QUEtiapine 50 MG TAB PO SCH ×2 (08:15→13:43)
[2020-02-14] MEDS: NICOTINE 7MG/24HR PATCH TRANSDERM SCH (08:15)
[2020-02-14] MEDS: METHADONE 10 MG TAB PO SCH (08:16)
[2020-02-14] MEDS: PANTOPRAZOLE 40 MG TABLET PO SCH (09:03)
[2020-02-14] MEDS: LORazepam 0.5 MG TAB PO PRN (12:01)
--- NOTE | 2020-02-14 13:00 | P.PN ---
Progress Note - Text Progress Note Date: 02/14/20 Interval History: Patient was seen wandering the hallways this morning and was directable and ag reeable to speak with board writer in the office. She claims that she is feeling mild improvement with regards to her depression and anxiety and claims that she wants to continue on with the Zoloft and have it increased over the weekend. She states that she was not having the best day today as she found out that she was not allowed back at [facility] and will probably need to go to [facility] which she is unsure about. She claims that she'll be talking to somebody about that today. She claims that she feels that her anxiety is still not under control and continues to have some fleeting thoughts of suicide. Nurse Educator spoke with patient about starting lithium for suicidal thoughts and a mood adjunct and patient was agreeable to it. She states that she was able to sleep a little bit better last night approximately 5 hours which she felt happy about. He claims that she has been trying to go to groups and focus on her recovery. Once again today patient states that she still feels swollen even though she has been cutting back on her fluid intake. Patient denies any homical ideations, intent or plan. Patient denies any auditory, visual hallucinations. Patient denies any side effects from the medications and has been compliant with meds. Mental Status Exam: General Appearance: Patient appears to be overweight, stated age is alert, directable, and attempts to be more cooperative. Improving hygiene and grooming. Behavior: Patient is calmly seated without any agitated behavior. Appears to be in mild distress. Speech: Patient's speech is fluent and nonpressured. Mood/Affect: Mood is depressed and anxious, mildly improving, affect is congruent Suicidality/Homicidality: Patient denies having any homicidal ideation intent or plan. Continues to have fleeting thoughts of suicide. Perceptions: Patient denies any visual hallucinations and denies any auditory hallucinations Though content/process: There is no evidence of any delusional thought content and thought process is linear and goal-directed. Preoccupied with her symptoms and medications. Memory and concentration: AOX3, grossly intact for the purposes of this session Judgment and insight: Poor, Improving mildly Assessment Depressive disorder unspecified, rule out bipolar depression Anxiety disorder unspecified Opioid dependence, currently on agonist therapy Alcohol abuse nicotine dependence Plan: -Patient continues to meet criteria for inpatient psychiatric admission for symptom stabilization and safety. Patient has signed adult voluntary form and medication consent and was placed in patient's chart. -Medications: Continue with Seroquel 50 mg twice a day + 200 mg daily at bedtime for mood stabilization, discontinued BuSpar due to ineffectiveness. Continue the Remeron 45 mg daily at bedtime for insomnia/mood, increased Zoloft 150 mg daily for mood/anxiety. Continue with Benadryl 50 mg daily at bedtime for insomnia. Added lithium 150 mg twice a day for mood adjunct/suicidal thoughts. -Continue with methadone at her home dose of 145 mg being dosed daily. -EKG checked on 02/10/2020 - QTc interval at 457 with normal sinus rhythm -Reviewed to [facility], no significant abnormalities are seen, advised patient to cut back on her water intake today to 3 cups per day. Will ask nurse to contact sound physician group to give further recommendations on patient's new onset edema. -When necessary Ativan and Geodon for agitation/aggression. -NRT - nicotine patch -SW on board for discharge planning. Encouraged the patient to participate in milieu. She has not allowed back at [facility] however we are currently exploring the option for her to go to [facility]. Likely discharge next week.
[2020-02-14] MEDS: LITHIUM CARBONATE 150 MG CAP PO SCH ×2 (13:43→20:35)
[2020-02-14] MEDS: ACETAMINOPHEN TAB 325 MG TAB PO PRN (13:43)
--- NOTE | 2020-02-14 16:23 | P.PN ---
Subjective Progress Note Date: 02/14/20 Principal diagnosis: edema Patient is a 34-year-old female with a history of bipolar disorder, prior substance abuse, alcohol abuse, and hypothyroidism who is currently in the [facility] unit. Patient seen and examined at bedside at the request of the attending physician. She reports that over the last 3 days she has had increased swelling in her bilateral upper and lower extremities. She reports the swelling is the worst in her legs in the morning and gets better as she walks on them. She denies any chest pain or shortness of breath. She has never had anything similar prior. She denies any recent cough, cold, fever, flu. She takes all her medications as prescribed. General: Nontoxic, no distress, appears at stated age Derm: Diffuse erythema-patient states it's related to taking a warm shower recently warm, dry Head: atraumatic, normocephalic, symmetric Eyes: EOMI, no lid lag, anicteric sclera Mouth: no lip lesion, mucus membranes moist Cardiovascular: S1S2 reg, no murmur, positive posterior tibial pulse bilateral, Lungs: CTA bilateral, no rhonchi, no rales , no accessory muscle use Abdominal: soft, nontender to palpation, no guarding, no appreciable organomegaly Ext: no gross muscle atrophy, nonpitting edema bilateral upper and lower extremities, no contractures Neuro: CN II-XI grossly intact, no focal neuro deficits Psych: Alert, oriented, appropriate affect Diffuse anasarca -Check echocardiogram, liver ultrasound, urine protein, spot urine microalbumin -Check renal profile -Continue to monitor -Hydrochlorothiazide for symptom control Hypothyroidism with elevated TSH - increase levothyroxine ETOH abuse - asses for cirrhosis - cessation HX of IVDA Will follow closely Objective - Vital Signs Vital signs: Vital Signs Temp 98.0 F 02/14/20 06:23 Pulse 96 02/14/20 08:20 Resp 17 02/14/20 06:23 BP 118/72 02/14/20 08:20 Pulse Ox 97 02/14/20 06:23 - Labs CBC & Chem 7: 02/10/20 09:02 02/13/20 11:37
[2020-02-14] MEDS: hydroCHLOROthiazide 25 MG TAB PO SCH (16:25)
[2020-02-14 17:25] LABS: INR 0.9 (<1.2); Prothrombin Time 9.6 sec (9.0-12.0)
[2020-02-14 17:27] LABS: Albumin 4.6 g/dL (3.5-5.0); Calcium 9.8 mg/dL (8.4-10.2); Potassium 4.6 mmol/L (3.5-5.1); Total Bilirubin 0.3 mg/dL (0.2-1.3); Total Protein 7.8 g/dL (6.3-8.2)
[2020-02-14 17:41] LABS: Appearance,Urine Cloudy (Clear); Bilirubin,Urine Negative (Negative); Blood,Urine Negative (Negative); Color,Urine Yellow; Glucose,Urine (UA) Negative (Negative); Ketones,Urine Negative (Negative); Leukocyte Esterase,Urine Negative (Negative); Mucus,Urine Occasional /hpf; Nitrite,Urine Negative (Negative); PH, Urine 5.5 (5.0-8.0); Protein,Urine Negative (Negative); Specific Gravity,Urine 1.023 (1.001-1.035); Squamous Epithelial Cell,Urine 1 /hpf (0-4); Urobilinogen,Urine <2.0 mg/dL (<2.0); WBC,Urine 1 /hpf (0-5)
--- NOTE | 2020-02-14 18:40 | US ---
EXAMINATION TYPE: US abdomen limited DATE OF EXAM: 02/14/2020 COMPARISON: NONE CLINICAL HISTORY: ascities. No fluid visualized. IMPRESSION: There is no evidence of abdominal ascites fluid.
[2020-02-14] MEDS: QUEtiapine 200 MG TAB PO SCH (20:35)
[2020-02-14] MEDS: diphenhydrAMINE 50 MG CAP PO SCH (20:35)
[2020-02-14] MEDS: MIRTAZAPINE 45 MG TABLET PO SCH (20:36)
[2020-02-15 04:18] LABS: Urine Creatinine 149.9 mg/dL
[2020-02-15] MEDS: LEVOTHYROXINE 75 MCG TAB PO SCH (06:17)
[2020-02-15] MEDS: METHADONE 10 MG TAB PO SCH (08:15)
[2020-02-15] MEDS: LITHIUM CARBONATE 150 MG CAP PO SCH ×2 (08:15→21:09)
[2020-02-15] MEDS: DICYCLOMINE 20 MG TAB PO SCH ×3 (08:15→21:09)
[2020-02-15] MEDS: GABAPENTIN 100 MG CAP PO SCH ×3 (08:15→21:10)
[2020-02-15] MEDS: hydroCHLOROthiazide 25 MG TAB PO SCH (08:16)
[2020-02-15] MEDS: QUEtiapine 50 MG TAB PO SCH ×2 (08:16→13:42)
[2020-02-15] MEDS: PANTOPRAZOLE 40 MG TABLET PO SCH (08:16)
[2020-02-15] MEDS: MULTIVITAMINS, THERA 1 EACH TAB PO SCH (08:16)
[2020-02-15] MEDS: SERTRALINE 50 MG TAB PO SCH (08:16)
[2020-02-15] MEDS: NICOTINE 7MG/24HR PATCH TRANSDERM SCH (08:16)
--- NOTE | 2020-02-15 10:21 | P.PN ---
Progress Note - Text Progress Note Date: 02/15/20 Interval history: Patient was seen attending group and was directable and agreeable to speak with greeting card writer. Patient reports that she has been feeling increasingly irritable. She is unsure if this is a side effect of lithium. She reports that she has been getting angry at "the littlest things and other peers." She states that when she is angry she clenches her fists really tight and feels hot all over. She denies any outbursts or violence. She also reports that during this time she has an urge to self-harm. She denies any suicidal ideation, intention, and/or plan. She reports no homicidal ideation. She denies any auditory or visual hallucinations. She denies any paranoia or other delusions. She has been adherent with her medications and is otherwise unsure of any other side effects aside from her increased irritability. She was informed that lithium is not known to increase in irritability or anger. Mental status exam: General Appearance: Patient appears to be her stated age, obese body habitus, with fair hygiene and grooming. Behavior: No agitated behavior. Patient is calm and directable Speech: Patient's speech is fluent and nonpressured. Mood/Affect: Mood is irritable, affect is incongruent, euthymic to bright, with appropriate range. Suicidality/Homicidality: Patient denies having any suicidal or homicidal ideation intent or plan. Perceptions: Patient denies any auditory or visual hallucinations. Though content/process: He reports urges of self-harm but otherwise is not reporting any delusional thought content and that her thought process appears to be linear and logical in short conversation. Memory and concentration: AOX3, grossly intact for the purposes of this session Judgment and insight: improving mildly Assessment/Plan: Continue with current diagnosis. Patient continues to meet criteria for inpatient psychiatric admission for symptom stabilization and safety.Patient will be maintained on current psychotropic medication regimen. Monitor for medication compliance and for any psychotropic medication side effects. Will continue to monitor ongoing response to treatment. Encouraged participation in milieu.
[2020-02-15] MEDS: LORazepam 0.5 MG TAB PO PRN ×2 (11:04→19:18)
--- NOTE | 2020-02-15 14:41 | ECHOF ---
Referral Reason:edema MEASUREMENTS -------- HEIGHT: 165.1 cm WEIGHT: 127.0 kg BP: 94/55 RVIDd: 2.8 cm (< 3.3) IVSd: 1.0 cm (0.6 - 1.1) LVIDd: 3.6 cm (3.9 - 5.3) LVPWd: 1.1 cm (0.6 - 1.1) IVSs: 1.4 cm LVIDs: 2.5 cm LVPWs: 1.7 cm LA Diam: 3.1 cm (2.7 - 3.8) Ao Diam: 2.8 cm (2.0 - 3.7) AV Cusp: 1.7 cm (1.5 - 2.6) MV EXCURSION: 10.541 mm (> 18.000) MV EF SLOPE: 55 mm/s (70 - 150) EPSS: 0.9 cm MV E Isidoro: 0.86 m/s MV DecT: 236 ms MV A Isidoro: 0.67 m/s MV E/A Ratio: 1.29 FINDINGS -------- Sinus rhythm. This was a technically adequate study. The left ventricular size is normal. Left ventricular wall thickness is normal. Overall left vent ricular systolic function is normal with, an EF between 60 - 65 %. The right ventricle is normal in size. The left atrial size is normal. The right atrium is normal in size. Interatrial and interventricular septum intact. The aortic valve is trileaflet and appears structurally normal. The mitral valve is normal. The tricuspid valve appears structurally normal. The pulmonic valve was not well visualized. The aortic root size is normal. Normal inferior vena cava with normal inspiratory collapse consistent with estimated right atrial pre ssure of 5 mmHg. There is no pericardial effusion. CONCLUSIONS -------- 1. The left ventricular size is normal. 2. Left ventricular wall thickness is normal. 3. Overall left ventricular systolic function is normal with, an EF between 60 - 65 %. 4. There is no pericardial effusion. FRONT DESK ADMINISTRATOR: Emperatriz Hutchinson MIL[place]
[2020-02-15] MEDS: diphenhydrAMINE 50 MG CAP PO SCH (21:09)
[2020-02-15] MEDS: QUEtiapine 200 MG TAB PO SCH (21:09)
[2020-02-15] MEDS: MIRTAZAPINE 45 MG TABLET PO SCH (21:09)
[2020-02-16] MEDS: LEVOTHYROXINE 75 MCG TAB PO SCH (06:19)
[2020-02-16] MEDS: hydroCHLOROthiazide 25 MG TAB PO SCH (08:06)
[2020-02-16] MEDS: QUEtiapine 50 MG TAB PO SCH ×2 (08:06→13:05)
[2020-02-16] MEDS: LITHIUM CARBONATE 150 MG CAP PO SCH ×2 (08:06→20:12)
[2020-02-16] MEDS: PANTOPRAZOLE 40 MG TABLET PO SCH (08:06)
[2020-02-16] MEDS: MULTIVITAMINS, THERA 1 EACH TAB PO SCH (08:06)
[2020-02-16] MEDS: GABAPENTIN 100 MG CAP PO SCH ×3 (08:06→20:10)
[2020-02-16] MEDS: NICOTINE 7MG/24HR PATCH TRANSDERM SCH (08:06)
[2020-02-16] MEDS: SERTRALINE 50 MG TAB PO SCH (08:06)
[2020-02-16] MEDS: DICYCLOMINE 20 MG TAB PO SCH ×3 (08:06→20:11)
[2020-02-16] MEDS: METHADONE 10 MG TAB PO SCH (08:07)
[2020-02-16 09:02] LABS: Albumin 4.7 g/dL (3.5-5.0); Calcium 9.9 mg/dL (8.4-10.2); Magnesium 1.8 mg/dL (1.6-2.3); Potassium 4.4 mmol/L (3.5-5.1); Total Bilirubin 0.5 mg/dL (0.2-1.3); Total Protein 8.1 g/dL (6.3-8.2)
--- NOTE | 2020-02-16 10:02 | P.PN ---
Progress Note - Text Progress Note Date: 02/16/20 Interval history: Patient was seen resting in bed and was agreeable to speak with the fiction and nonfiction prose writer in her room with no one else present. Patient reports that she feels less irritable than yesterday. She states that she feels more tired today. She reports that she did have an episode of anger last night but has been able to maintain and practiced her coping skills. She denies any outbursts or violence. She denies any thoughts of self-harm. She reports no suicidal or homicidal ideation, intention, and/or plan. She denies any visual or auditory hallucinations. She denies any paranoia or other delusions. She has been adherent with her medications as pointing any significant side effects at this time. The patient did have a echocardiogram as the patient has been experiencing since increased swelling. The echo revealed normal left ventricular systolic function with an ejection fraction between 60-65%. No signs of pericardial effusion. Mental status exam: General Appearance: Patient appears to be her stated age, obese body habitus, with fair hygiene and grooming. Behavior: No agitated behavior. Patient is calm and directable Speech: Patient's speech is fluent and nonpressured. Mood/Affect: Mood is irritable, affect is incongruent, euthymic to bright, with appropriate range. Suicidality/Homicidality: Patient denies having any suicidal or homicidal ideation intent or plan. Perceptions: Patient denies any auditory or visual hallucinations. Though content/process: Patient is not reporting any delusions or abnormal thought content. Thought process is linear and logical in short conversation. Memory and concentration: AOX3, grossly intact for the purposes of this session Judgment and insight: improving mildly Assessment/Plan: Continue with current diagnosis. Patient continues to meet criteria for inpatient psychiatric admission for symptom stabilization and safety. Patient will be maintained on current psychotropic medication regimen. Monitor for medication compliance and for any psychotropic medication side effects. Will continue to monitor ongoing response to treatment. Encouraged participation in milieu.
[2020-02-16] MEDS: LORazepam 0.5 MG TAB PO PRN (13:05)
[2020-02-16] MEDS: MAG HYDROX/AL HYDROX/SIMETH 30 ML CUP PO PRN (16:53)
[2020-02-16] MEDS: diphenhydrAMINE 50 MG CAP PO SCH (20:11)
[2020-02-16] MEDS: MIRTAZAPINE 45 MG TABLET PO SCH (20:11)
[2020-02-16] MEDS: QUEtiapine 200 MG TAB PO SCH (21:31)
[2020-02-17] MEDS: LEVOTHYROXINE 75 MCG TAB PO SCH (06:38)
[2020-02-17] MEDS: LITHIUM CARBONATE 150 MG CAP PO SCH (08:34)
[2020-02-17] MEDS: SERTRALINE 50 MG TAB PO SCH (08:34)
[2020-02-17] MEDS: hydroCHLOROthiazide 25 MG TAB PO SCH (08:34)
[2020-02-17] MEDS: QUEtiapine 50 MG TAB PO SCH ×2 (08:34→13:21)
[2020-02-17] MEDS: GABAPENTIN 100 MG CAP PO SCH ×3 (08:34→21:45)
[2020-02-17] MEDS: MULTIVITAMINS, THERA 1 EACH TAB PO SCH (08:35)
[2020-02-17] MEDS: METHADONE 10 MG TAB PO SCH (08:35)
[2020-02-17] MEDS: DICYCLOMINE 20 MG TAB PO SCH ×3 (08:35→21:45)
[2020-02-17] MEDS: PANTOPRAZOLE 40 MG TABLET PO SCH (08:35)
[2020-02-17] MEDS: NICOTINE 7MG/24HR PATCH TRANSDERM SCH (08:36)
[2020-02-17] MEDS ORDERED: SERTRALINE 50 MG TAB PO STA (09:43)
[2020-02-17] MEDS: lamoTRIgine 25 MG TAB PO SCH ×2 (10:01→21:45)
--- NOTE | 2020-02-17 10:03 | P.PN ---
Progress Note - Text Progress Note Date: 02/17/20 Interval History: Patient was seen lying in her bed this morning and was directable and agreeable to speak with casualty underwriter in the office. She claims that she did not feel well over the weekend after starting the lithium. She states that over the weekend she is feeling more anxious and having more thoughts of suicide. She was requesting to have the medication discontinued. She states that she does not know if she feels on the Zoloft however is willing to have it increased once again. She cla ims that she is experiencing more anxiety lately. She claims that she was able to sleep approximately 4-5 hours last night. Patient asked several questions about her medications and casualty underwriter explained pros and cons about the different medications and also side effects and patient was agreeable to be started on Lamictal. SHe claims that she has been trying to go to groups and focus on her recovery. She claims that her edema has decreased significantly since being started on the diuretic. Patient denies any homical ideations, intent or plan. Patient denies any auditory, visual hallucinations. Patient denies any side effects from the medications and has been compliant with meds. Mental Status Exam: General Appearance: Patient appears to be overweight, stated age is alert, directable, and attempts to be more cooperative. Improving hygiene and grooming. Behavior: Patient is calmly seated without any agitated behavior. Appears to be in mild distress. Speech: Patient's speech is fluent and nonpressured. Mood/Affect: Mood is depressed and anxious, affect is congruent Suicidality/Homicidality: Patient denies having any homicidal ideation intent or plan. Continues to have fleeting thoughts of suicide, no intent or plan. Perceptions: Patient denies any visual hallucinations and denies any auditory hallucinations Though content/process: There is no evidence of any delusional thought content and thought process is linear and goal-directed. Preoccupied with her symptoms and medications. Memory and concentration: AOX3, grossly intact for the purposes of this session Judgment and insight: Poor, Improving mildly Assessment Depressive disorder unspecified, rule out bipolar depression Anxiety disorder unspecified Opioid dependence, currently on agonist therapy Alcohol abuse nicotine dependence Plan: -Patient continues to meet criteria for inpatient psychiatric admission for symptom stabilization and safety. Patient has signed adult voluntary form and medication consent and was placed in patient's chart. -Medications: Continue with Seroquel 50 mg twice a day + 200 mg daily at bedtime for mood stabilization. Consider restarting BuSpar tomorrow. Continue the Remeron 45 mg daily at bedtime for insomnia/mood, increased Zoloft 200 mg daily for mood/anxiety. Continue with Benadryl 50 mg daily at bedtime for insomnia. Discontinue lithium. -Continue with methadone at her home dose of 145 mg being dosed daily. -EKG checked on 02/10/2020 - QTc interval at 457 with normal sinus rhythm -Reviewed to [facility], urine analysis and no significant abnormalities are seen. Echocardiogram was negative, and abdominal ultrasound did not reveal any ascites. Continue with hydrochlorothiazide as per internal medicine. -When necessary Ativan and Geodon for agitation/aggression. -NRT - nicotine patch -SW on board for discharge planning. Encouraged the patient to participate in milieu. She has not allowed back at [facility] however we are currently exploring the option for her to go to [facility]. Likely discharge once patient's symptoms are improved.
[2020-02-17] MEDS: LORazepam 0.5 MG TAB PO PRN (13:21)
[2020-02-17] MEDS: MAG HYDROX/AL HYDROX/SIMETH 30 ML CUP PO PRN (13:51)
[2020-02-17] MEDS ORDERED: LOPERAMIDE 2 MG CAP PO STA (16:40)
[2020-02-17] MEDS: MIRTAZAPINE 45 MG TABLET PO SCH (21:45)
[2020-02-17] MEDS: diphenhydrAMINE 50 MG CAP PO SCH (21:45)
[2020-02-17] MEDS: QUEtiapine 200 MG TAB PO SCH (21:45)
[2020-02-18] MEDS: LEVOTHYROXINE 75 MCG TAB PO SCH (06:28)
[2020-02-18] MEDS: METHADONE 10 MG TAB PO SCH (08:07)
[2020-02-18] MEDS: MULTIVITAMINS, THERA 1 EACH TAB PO SCH (09:06)
[2020-02-18] MEDS: QUEtiapine 50 MG TAB PO SCH ×2 (09:06→13:37)
[2020-02-18] MEDS: GABAPENTIN 100 MG CAP PO SCH ×3 (09:06→20:37)
[2020-02-18] MEDS: hydroCHLOROthiazide 25 MG TAB PO SCH (09:06)
[2020-02-18] MEDS: lamoTRIgine 25 MG TAB PO SCH ×2 (09:06→20:38)
[2020-02-18] MEDS: PANTOPRAZOLE 40 MG TABLET PO SCH (09:06)
[2020-02-18] MEDS: NICOTINE 7MG/24HR PATCH TRANSDERM SCH (09:06)
[2020-02-18] MEDS: DICYCLOMINE 20 MG TAB PO SCH ×3 (09:08→20:38)
[2020-02-18] MEDS: ERGOCALCIFEROL 50,000 UNIT CAP PO SCH (09:08)
[2020-02-18] MEDS: SERTRALINE 100 MG TAB PO SCH (09:12)
--- NOTE | 2020-02-18 10:22 | P.PN ---
Progress Note - Text Progress Note Date: 02/18/20 Interval History: Patient was seen sitting in on group this morning and was directable and agree able to speak with commercial loan underwriter in the office. She claims that she is feeling nauseous for the past day or so and claims that she vomited 3 times last night. She claims that her covid test was negative. She claims that she has been trying to remain optimistic in terms of her treatment on the unit and has been trying to go to the 2 morning groups and work on her coping skills and talk about her stressors. He claims that her suicidal thoughts have been improving and she denied any current thoughts at this time. She continues to be focused on her medications. She was agreeable to have her Lamictal increased tonight. She claims that she was able to sleep approximately 5 hours last night. She claims that her edema has decreased significantly. Patient denies any homical ideations, intent or plan. Patient denies any auditory, visual hallucinations. Patient denies any side effects from the medications and has been compliant with meds. Mental Status Exam: General Appearance: Patient appears to be overweight, stated age is alert, directable, and attempts to be more cooperative. Improving hygiene and grooming. Behavior: Patient is calmly seated without any agitated behavior. Appears to be in mild distress secondary to nausea. Speech: Patient's speech is fluent and nonpressured. Mood/Affect: Mood is depressed and anxious, improving mildly, affect is congruent and constricted Suicidality/Homicidality: Patient denies having any homicidal ideation intent or plan. No suicidal thoughts currently, no intent or plan. Perceptions: Patient denies any visual hallucinations and denies any auditory hallucinations Though content/process: There is no evidence of any delusional thought content and thought process is linear and goal-directed. Preoccupied with her symptoms and medications. Memory and concentration: AOX3, grossly intact for the purposes of this session Judgment and insight: Poor, Improving mildly Assessment Depressive disorder unspecified, rule out bipolar depression Anxiety disorder unspecified Opioid dependence, currently on agonist therapy Alcohol abuse nicotine dependence Plan: -Patient continues to meet criteria for inpatient psychiatric admission for symptom stabilization and safety. Patient has signed adult voluntary form and medication consent and was placed in patient's chart. -Medications: Continue with Seroquel 50 mg twice a day + 200 mg daily at bedtime for mood stabilization. Continue the Remeron 45 mg daily at bedtime for insomnia/mood, Zoloft 200 mg daily for mood/anxiety. Continue with Benadryl 50 mg daily at bedtime for insomnia. Increased Lamictal to 50 mg twice a day for mood stabilization/depression. -Added Zofran when necessary for nausea. Ordered a sick metabolic panel along with CBC with differential given patient's new onset nausea. We'll consider contacting medicine if symptom does not improve. -Continue with methadone at her home dose of 145 mg being dosed daily. -EKG checked on 02/10/2020 - QTc interval at 457 with normal sinus rhythm -Echocardiogram was negative, and abdominal ultrasound did not reveal any ascites. Continue with hydrochlorothiazide as per internal medicine. -When necessary Ativan and Geodon for agitation/aggression. -NRT - nicotine patch -SW on board for discharge planning. Encouraged the patient to participate in milieu. She has not allowed back at [facility] at this time. Patient will need to go to a sober house upon discharge with daily methadone dosing.
[2020-02-18] MEDS: ONDANSETRON 4 MG TAB PO PRN ×2 (10:34→17:45)
[2020-02-18 10:53] LABS: Basophils # (A) 0.1 k/uL (0-0.2); Basophils % (A) 1 %; Eosinophils # (A) 0.2 k/uL (0-0.7); Eosinophils % (A) 3 %; HGB 14.3 gm/dL (11.4-16.0); Lymphocytes # (A) 2.4 k/uL (1.0-4.8); Lymphocytes % (A) 32 %; MCH 27.1 pg (25.0-35.0); MCHC 32.5 g/dL (31.0-37.0); MCV 83.6 fL (80.0-100.0); Monocytes # (A) 0.4 k/uL (0-1.0); Monocytes % (A) 5 %; Neutrophils # (A) 4.3 k/uL (1.3-7.7); Neutrophils % (A) 57 %; Platelet Count 289 k/uL (150-450); RBC 5.27 m/uL (3.80-5.40); RDW 14.1 % (11.5-15.5); WBC 7.5 k/uL (3.8-10.6)
[2020-02-18 10:58] LABS: Calcium 9.8 mg/dL (8.4-10.2); Potassium 4.1 mmol/L (3.5-5.1)
[2020-02-18] MEDS: LORazepam 0.5 MG TAB PO PRN (13:38)
[2020-02-18] MEDS: diphenhydrAMINE 50 MG CAP PO SCH (20:37)
[2020-02-18] MEDS: QUEtiapine 200 MG TAB PO SCH (20:37)
[2020-02-18] MEDS: MIRTAZAPINE 45 MG TABLET PO SCH (20:38)
[2020-02-19] MEDS: LEVOTHYROXINE 75 MCG TAB PO SCH (06:29)
[2020-02-19] MEDS: NICOTINE 7MG/24HR PATCH TRANSDERM SCH (08:50)
[2020-02-19] MEDS: METHADONE 10 MG TAB PO SCH (08:54)
[2020-02-19] MEDS: DICYCLOMINE 20 MG TAB PO SCH ×3 (08:54→21:20)
[2020-02-19] MEDS: hydroCHLOROthiazide 25 MG TAB PO SCH (08:54)
[2020-02-19] MEDS: MULTIVITAMINS, THERA 1 EACH TAB PO SCH (08:54)
[2020-02-19] MEDS: QUEtiapine 50 MG TAB PO SCH ×2 (08:54→13:47)
[2020-02-19] MEDS: SERTRALINE 100 MG TAB PO SCH (08:54)
[2020-02-19] MEDS: ONDANSETRON 4 MG TAB PO PRN (08:54)
[2020-02-19] MEDS: GABAPENTIN 100 MG CAP PO SCH ×3 (08:54→21:20)
[2020-02-19] MEDS: PANTOPRAZOLE 40 MG TABLET PO SCH (08:54)
[2020-02-19] MEDS: lamoTRIgine 25 MG TAB PO SCH ×2 (08:54→20:35)
--- NOTE | 2020-02-19 10:32 | P.PN ---
Progress Note - Text Progress Note Date: 02/19/20 Interval History: Patient was seen sitting in on group this morning and was directable and agree able to speak with copy writer in the office. She claims that today she was feeling more suicidal this morning and states that she even had a dream last night of her father talking to her and telling her to "just do it" referring to suicide. She claims that she has not been speaking to other people outside of the unit as she has no other significant support. She states that she is continuing to have depression and feels that she is having nausea still from her medications. She states that the Zofran has been helping her. She claims that she was not able to sleep fairly last night. She claims that she has been trying to go to groups and participate as best as she can. Key Worker spoke with patient again in depth about her medications and the different options for treatment and patient was agreeable to start a different antidepressant tomorrow and was agreeable to take Cymbalta. Se continues to be focused on her medications. She claims that she was able to sleep approximately 5 hours last night. She claims that her edema has decreased significantly. Patients lab results were reviewed with her. Patient denies any homical ideations, intent or plan. Patient denies any auditory, visual hallucinations. Patient has been compliant with meds. Mental Status Exam: General Appearance: Patient appears to be overweight, stated age is alert, directable, and attempts to be cooperative. Improving hygiene and grooming. Behavior: Patient is calmly seated without any agitated behavior. Appears to be in mild distress secondary to nausea. Speech: Patient's speech is fluent and nonpressured. Mood/Affect: Mood is depressed and anxious, improving mildly, affect is congruent and constricted Suicidality/Homicidality: Patient denies having any homicidal ideation intent or plan. Admitted to suicidal thoughts more frequently today. No intent or plan. Perceptions: Patient denies any visual hallucinations and denies any auditory hallucinations Though content/process: There is no evidence of any delusional thought content and thought process is linear and goal-directed. Preoccupied with her symptoms and medications. Memory and concentration: AOX3, grossly intact for the purposes of this session Judgment and insight: Poor, Improving mildly Assessment Depressive disorder unspecified, rule out bipolar depression Anxiety disorder unspecified Opioid dependence, currently on agonist therapy Alcohol abuse nicotine dependence Plan: -Patient continues to meet criteria for inpatient psychiatric admission for symptom stabilization and safety. Patient has signed adult voluntary form and medication consent and was placed in patient's chart. -Medications: Continue with Seroquel 50 mg twice a day + 200 mg daily at bedtime for mood stabilization. Continue the Remeron 45 mg daily at bedtime for insomnia/mood, decrease Zoloft to 100 mg daily for mood/anxiety, commencing cross titration with Cymbalta, we'll start 30 mg daily tomorrow. Continue with Benadryl 50 mg daily at bedtime for insomnia. Continue with Lamictal to 50 mg twice a day for mood stabilization/depression. -Continue with Zofran when necessary for nausea. Patient also requested to have Imodium when necessary for diarrhea. -Continue with methadone at her home dose of 145 mg being dosed daily. -EKG checked on 02/10/2020 - QTc interval at 457 with normal sinus rhythm -Echocardiogram was negative, and abdominal ultrasound did not reveal any ascites. Continue with hydrochlorothiazide as per internal medicine. -When necessary Lou and Renetta for agitation/aggression. -NRT - nicotine patch -SW on board for discharge planning. Encouraged the patient to participate in milieu. She has not allowed back at [facility] at this time. Patient will need to go to a sober house upon discharge with daily methadone dosing.
[2020-02-19] MEDS: LORazepam 0.5 MG TAB PO PRN (13:47)
[2020-02-19] MEDS: ACETAMINOPHEN TAB 325 MG TAB PO PRN (13:47)
[2020-02-19] MEDS: LOPERAMIDE 2 MG CAP PO PRN (14:43)
[2020-02-19] MEDS: MAG HYDROX/AL HYDROX/SIMETH 30 ML CUP PO PRN (14:43)
[2020-02-19 15:25] VITALS: BMI 48.0
[2020-02-19] MEDS: QUEtiapine 200 MG TAB PO SCH (20:35)
[2020-02-19] MEDS: diphenhydrAMINE 50 MG CAP PO SCH (20:36)
[2020-02-19] MEDS: MIRTAZAPINE 45 MG TABLET PO SCH (20:36)
[2020-02-20] MEDS: LEVOTHYROXINE 75 MCG TAB PO SCH (06:42)
[2020-02-20] MEDS: METHADONE 10 MG TAB PO SCH (08:10)
[2020-02-20] MEDS: GABAPENTIN 100 MG CAP PO SCH ×3 (08:12→21:55)
[2020-02-20] MEDS: NICOTINE 7MG/24HR PATCH TRANSDERM SCH (08:12)
[2020-02-20] MEDS: DICYCLOMINE 20 MG TAB PO SCH ×3 (08:12→21:55)
[2020-02-20] MEDS: MULTIVITAMINS, THERA 1 EACH TAB PO SCH (08:13)
[2020-02-20] MEDS: hydroCHLOROthiazide 25 MG TAB PO SCH (08:13)
[2020-02-20] MEDS: PANTOPRAZOLE 40 MG TABLET PO SCH (08:13)
[2020-02-20] MEDS: QUEtiapine 50 MG TAB PO SCH ×2 (08:13→13:40)
[2020-02-20] MEDS: lamoTRIgine 25 MG TAB PO SCH ×2 (08:13→20:25)
[2020-02-20] MEDS: ERGOCALCIFEROL 50,000 UNIT CAP PO SCH (08:13)
[2020-02-20] MEDS ORDERED: DULoxetine HCL 30 MG CAPSULE.DR PO SCH (09:00)
[2020-02-20] MEDS ORDERED: SERTRALINE 100 MG TAB PO SCH (09:00)
--- NOTE | 2020-02-20 10:07 | P.PN ---
Progress Note - Text Progress Note Date: 02/20/20 Interval History: Patient was seen sitting in on group this morning and was directable and agree able to speak with writer editor in the office. She claims that today she was feeling suicidal earlier this morning after she woke up in a panic attack. She claims that she had poor sleep last night and claimed that she was thinking about a lot of different things. She states that today she does have a more positive outlook on her situation. She explained that she knows how difficult it is for her to find a place to go due to her being on methadone and states that there is an option for her in [place] in a home that is close to [facility] for her to get her methadone dosing. She states that she is looking forward to going to the home and states that there is a bed available for her. She claims that she has been trying to go to groups and work on her suicidal thoughts and coping skills. She also states that she feels less nauseous today and believes it was due to the Zoloft. Patient denies any homical ideations, intent or plan. Patient denies any auditory, visual hallucinations. Patient has been compliant with meds. Mental Status Exam: General Appearance: Patient appears to be overweight, stated age is alert, directable, and attempts to be cooperative. Improving hygiene and grooming. Behavior: Patient is calmly seated without any agitated behavior. Attempts to cooperate Speech: Patient's speech is fluent and nonpressured. Mood/Affect: Mood is depressed and anxious, improving mildly, affect is congruent and constricted Suicidality/Homicidality: Patient denies having any homicidal ideation intent or plan. Admitted to suicidal thoughts earlier today. No intent or plan. Perceptions: Patient denies any visual hallucinations and denies any auditory hallucinations Though content/process: There is no evidence of any delusional thought content and thought process is linear and goal-directed. Preoccupied with her symptoms and medications. Memory and concentration: AOX3, grossly intact for the purposes of this session Judgment and insight: Poor, Improving mildly Assessment: Depressive disorder unspecified, rule out bipolar depression Anxiety disorder unspecified Opioid dependence, currently on agonist therapy Alcohol abuse nicotine dependence Plan: -Patient continues to meet criteria for inpatient psychiatric admission for symptom stabilization and safety. Patient has signed adult voluntary form and medication consent and was placed in patient's chart. -Medications: Continue with Seroquel 50 mg twice a day + 200 mg daily at bedtime for mood stabilization. Continue the Remeron 45 mg daily at bedtime for insomnia/mood, decrease Zoloft to 50 mg daily for mood/anxiety, commencing cross titration with Cymbalta, we'll increase to 30 mg BID. Continue with Benadryl 50 mg daily at bedtime for insomnia. Increased Lamictal to 50 mg qhs + 1--mg daily for mood stabilization/depression. -Continue with Zofran when necessary for nausea. Continue with Imodium when necessary for diarrhea. -Continue with methadone at her home dose of 145 mg being dosed daily. -EKG checked on 02/10/2020 - QTc interval at 457 with normal sinus rhythm -Echocardiogram was negative, and abdominal ultrasound did not reveal any ascites. Continue with hydrochlorothiazide as per internal medicine. -When necessary Atliset and Renetta for agitation/aggression. -NRT - nicotine patch -SW on board for discharge planning. Encouraged the patient to participate in milieu. Likely option for discharge will be to a sober house in [place], [place] with methadone dosing at [facility].
[2020-02-20] MEDS: ACETAMINOPHEN TAB 325 MG TAB PO PRN (11:04)
[2020-02-20] MEDS: LORazepam 0.5 MG TAB PO PRN ×2 (11:05→19:16)
[2020-02-20] MEDS: LOPERAMIDE 2 MG CAP PO PRN (13:40)
[2020-02-20] MEDS: diphenhydrAMINE 50 MG CAP PO SCH (20:25)
[2020-02-20] MEDS: DULoxetine HCL 30 MG CAPSULE.DR PO SCH (20:25)
[2020-02-20] MEDS: QUEtiapine 200 MG TAB PO SCH (20:25)
[2020-02-20] MEDS: MIRTAZAPINE 45 MG TABLET PO SCH (20:26)
[2020-02-21] MEDS: LEVOTHYROXINE 75 MCG TAB PO SCH (06:03)
[2020-02-21] MEDS: METHADONE 10 MG TAB PO SCH (08:07)
[2020-02-21] MEDS: NICOTINE 7MG/24HR PATCH TRANSDERM SCH (08:56)
[2020-02-21] MEDS: DULoxetine HCL 30 MG CAPSULE.DR PO SCH ×2 (08:57→21:07)
[2020-02-21] MEDS: DICYCLOMINE 20 MG TAB PO SCH ×3 (08:57→21:07)
[2020-02-21] MEDS: GABAPENTIN 100 MG CAP PO SCH ×3 (08:58→21:07)
[2020-02-21] MEDS: hydroCHLOROthiazide 25 MG TAB PO SCH (08:58)
[2020-02-21] MEDS: QUEtiapine 50 MG TAB PO SCH ×2 (08:59→13:40)
[2020-02-21] MEDS: MULTIVITAMINS, THERA 1 EACH TAB PO SCH (08:59)
[2020-02-21] MEDS: PANTOPRAZOLE 40 MG TABLET PO SCH (08:59)
[2020-02-21] MEDS: lamoTRIgine 100 MG TAB PO SCH (08:59)
--- NOTE | 2020-02-21 09:23 | P.PN ---
Progress Note - Text Progress Note Date: 02/21/20 Interval History: Patient was seen wandering the hallways after taking her medications this morn ing and was directable and agreeable to speak with business writer in the office. She claims that today she was feeling suicidal earlier after she woke up this morning. She claims that she is continuing to have poor sleep at night time approximately 3 hours and states that it is making her feel more depressed and irritable. Associate spoke with patient about other options for sleeping agents and patient claims that she be willing to try doxepin at night for sleep. She spoke about other funding it could help her pay for her stay at [facility] for 3 months and states that she could be getting in there as soon as next week. She states that she is looking forward to going to the home. She claims that she has been trying to go to groups and work on her suicidal thoughts and coping skills. She also states that she feels less nauseous today. Patient denies any homical ideations, intent or plan. Patient denies any auditory, visual hallucinations. Patient has been compliant with meds. Mental Status Exam: General Appearance: Patient appears to be overweight, stated age is alert, more directable, and attempts to be cooperative. Fair hygiene and grooming. Behavior: Patient is calmly seated without any agitated behavior. Speech: Patient's speech is fluent and nonpressured. Mood/Affect: Mood is depressed and anxious, improving mildly, affect is congruent and constricted Suicidality/Homicidality: Patient denies having any homicidal ideation intent or plan. Admitted to suicidal thoughts earlier today. No intent or plan. Perceptions: Patient denies any visual hallucinations and denies any auditory hallucinations Though content/process: There is no evidence of any delusional thought content and thought process is linear and goal-directed. Preoccupied with her symptoms and medications. Memory and concentration: AOX3, grossly intact for the purposes of this session Judgment and insight: Poor, Improving mildly Assessment: Depressive disorder unspecified, rule out bipolar depression Anxiety disorder unspecified Opioid dependence, currently on agonist therapy Alcohol abuse nicotine dependence Plan: -Patient continues to meet criteria for inpatient psychiatric admission for sym ptom stabilization and safety. Patient has signed adult voluntary form and medication consent and was placed in patient's chart. -Medications: Continue with Seroquel 50 mg twice a day + 200 mg daily at bedtime for mood stabilization. Discontinued Remeron and discontinued Benadryl at this time. Patient is agreeable to start doxepin 10 mg daily at bedtime for insomnia. Discontinue Zoloft. we'll increase Cymbalta to 30 mg HS + 60mg daily. Continue with Lamictal to 50 mg qhs + 100mg daily for mood stabilization/depression. -Continue with Zofran when necessary for nausea. Continue with Imodium when necessary for diarrhea. -Continue with methadone at her home dose of 145 mg being dosed daily. -EKG checked on 02/10/2020 - QTc interval at 457 with normal sinus rhythm -Echocardiogram was negative, and abdominal ultrasound did not reveal any ascites. Continue with hydrochlorothiazide as per internal medicine. -When necessary Atliset and Oscardon for agitation/aggression. -NRT - nicotine patch -SW on board for discharge planning. Encouraged the patient to participate in milieu. Likely option for discharge will be to a sober house in [place], [place] with methadone dosing at [facility]. Likely discharge next week.
[2020-02-21] MEDS: LORazepam 0.5 MG TAB PO PRN (19:03)
[2020-02-21] MEDS ORDERED: DOXEPIN 10 MG CAP PO SCH (21:00)
[2020-02-21] MEDS: lamoTRIgine 25 MG TAB PO SCH (21:07)
[2020-02-21] MEDS: QUEtiapine 200 MG TAB PO SCH (21:07)
[2020-02-22] MEDS: LEVOTHYROXINE 75 MCG TAB PO SCH (06:42)
[2020-02-22] MEDS: NICOTINE 7MG/24HR PATCH TRANSDERM SCH (08:29)
[2020-02-22] MEDS: hydroCHLOROthiazide 25 MG TAB PO SCH (08:30)
[2020-02-22] MEDS: METHADONE 10 MG TAB PO SCH (08:30)
[2020-02-22] MEDS: QUEtiapine 50 MG TAB PO SCH ×2 (08:30→13:15)
[2020-02-22] MEDS: DULoxetine HCL 60 MG CAPSULE.DR PO SCH (08:30)
[2020-02-22] MEDS: MULTIVITAMINS, THERA 1 EACH TAB PO SCH (08:30)
[2020-02-22] MEDS: lamoTRIgine 100 MG TAB PO SCH ×2 (08:30→20:06)
[2020-02-22] MEDS: DICYCLOMINE 20 MG TAB PO SCH ×3 (08:30→20:07)
[2020-02-22] MEDS: PANTOPRAZOLE 40 MG TABLET PO SCH (08:30)
[2020-02-22] MEDS: GABAPENTIN 100 MG CAP PO SCH ×3 (08:30→20:06)
[2020-02-22] MEDS: busPIRone HCl 10 MG TAB PO SCH ×2 (10:26→20:06)
--- NOTE | 2020-02-22 10:34 | P.PN ---
Progress Note - Text Progress Note Date: 02/22/20 Interval History: Patient was seen wandering the hallways this morning and was directable and ag reeable to speak with abstract writer in the office. She claims that today she was feeling suicidal earlier this morning however states that overall her mood has been gradually improving. She states that she was able to sleep better last night approximately 3 hours however states that she awoke afterwards and was unable to go back to sleep. She claims that overall her anxiety has been improving. Kids that she feels less irritable today. He needs to speak about her discharge and where she'll be going. She claims that she has been trying to go to groups and work on her suicidal thoughts and coping skills. Patient denies any homical ideations, intent or plan. Patient denies any auditory, visual hallucinations. Patient has been compliant with meds. Mental Status Exam: General Appearance: Patient appears to be overweight, stated age is alert, more directable, and attempts to be cooperative. Fair hygiene and grooming. Behavior: Patient is calmly seated without any agitated behavior. Speech: Patient's speech is fluent and nonpressured. Mood/Affect: Mood is depressed and anxious, improving mildly, affect is congruent and constricted Suicidality/Homicidality: Patient denies having any homicidal ideation intent or plan. Admitted to suicidal thoughts earlier today. No intent or plan. Perceptions: Patient denies any visual hallucinations and denies any auditory hallucinations Though content/process: There is no evidence of any delusional thought content and thought process is linear and goal-directed. Preoccupied with her symptoms and medications. Memory and concentration: AOX3, grossly intact for the purposes of this session Judgment and insight: Poor, Improving mildly Assessment: Depressive disorder unspecified, rule out bipolar depression Anxiety disorder unspecified Opioid dependence, currently on agonist therapy Alcohol abuse nicotine dependence Plan: -Patient continues to meet criteria for inpatient psychiatric admission for symptom stabilization and safety. Patient has signed adult voluntary form and medication consent and was placed in patient's chart. -Medications: Decreased Seroquel 50 mg twice a day + 100 mg daily at bedtime for mood stabilization. Increased doxepin 20 mg daily at bedtime for insomnia. Continue with Cymbalta to 30 mg HS + 60mg daily. Increased Lamictal to 100mg bid for mood stabilization/depression. Added BuSpar 20 mg twice a day once again for anxiety. -Continue with Zofran when necessary for nausea. Continue with Imodium when necessary for diarrhea. -Continue with methadone at her home dose of 145 mg being dosed daily. -EKG checked on 02/10/2020 - QTc interval at 457 with normal sinus rhythm. Ordered another EKG today. -Echocardiogram was negative, and abdominal ultrasound did not reveal any ascites. Continue with hydrochlorothiazide as per internal medicine. -When necessary Ativan and Geodon for agitation/aggression. -NRT - nicotine patch -SW on board for discharge planning. Encouraged the patient to participate in milieu. Likely option for discharge will be to a sober house in [place], [place] with methadone dosing at [facility]. Likely discharge next week.
[2020-02-22] MEDS: LORazepam 0.5 MG TAB PO PRN (13:17)
[2020-02-22] MEDS: ACETAMINOPHEN TAB 325 MG TAB PO PRN (13:17)
[2020-02-22] MEDS: DOXEPIN 10 MG CAP PO SCH (20:05)
[2020-02-22] MEDS: DULoxetine HCL 30 MG CAPSULE.DR PO SCH (20:07)
[2020-02-22] MEDS: QUEtiapine 100 MG TAB PO SCH (20:07)
[2020-02-23] MEDS: LEVOTHYROXINE 75 MCG TAB PO SCH (06:04)
[2020-02-23] MEDS: NICOTINE 7MG/24HR PATCH TRANSDERM SCH (08:55)
[2020-02-23] MEDS: busPIRone HCl 10 MG TAB PO SCH ×3 (08:56→20:17)
[2020-02-23] MEDS: DICYCLOMINE 20 MG TAB PO SCH ×3 (08:56→20:17)
[2020-02-23] MEDS: MULTIVITAMINS, THERA 1 EACH TAB PO SCH (08:57)
[2020-02-23] MEDS: DULoxetine HCL 60 MG CAPSULE.DR PO SCH ×2 (08:57→20:17)
[2020-02-23] MEDS: hydroCHLOROthiazide 25 MG TAB PO SCH (08:57)
[2020-02-23] MEDS: lamoTRIgine 100 MG TAB PO SCH ×2 (08:57→20:17)
[2020-02-23] MEDS: GABAPENTIN 100 MG CAP PO SCH ×3 (09:00→20:18)
[2020-02-23] MEDS: METHADONE 10 MG TAB PO SCH (09:00)
[2020-02-23] MEDS: PANTOPRAZOLE 40 MG TABLET PO SCH (09:01)
[2020-02-23] MEDS: QUEtiapine 50 MG TAB PO SCH ×2 (09:01→13:37)
--- NOTE | 2020-02-23 11:30 | P.PN ---
Progress Note - Text Progress Note Date: 02/23/20 Interval History: Patient was seen taking part in group this morning and was directable and agre eable to speak with law writer in the office. She claims that today she is feeling better overall in terms of her mood and anxiety. She states that she believes the doxepin has been helping her sleep longer and states that she was able to sleep approximately 7-8 hours last night. She remains hopeful and more positive about her discharge coming up in the next couple days. She claims that overall her anxiety has been improving. She states that she feels less irritable today. She claims that she has been trying to go to groups and work on her suicidal thoughts and coping skills. Patient denies any homical ideations, intent or plan. Patient denies any auditory, visual hallucinations. Patient has been compliant with meds. Mental Status Exam: General Appearance: Patient appears to be overweight, stated age is alert, more directable, and attempts to be cooperative. Fair hygiene and grooming. Behavior: Patient is calmly seated without any agitated behavior. Speech: Patient's speech is fluent and nonpressured. Mood/Affect: Mood is improving mildly, affect is congruent and constricted Suicidality/Homicidality: Patient denies having any homicidal ideation intent or plan. Denies any suicidal thoughts today, No intent or plan. Perceptions: Patient denies any visual hallucinations and denies any auditory hallucinations Though content/process: There is no evidence of any delusional thought content and thought process is linear and goal-directed. Memory and concentration: AOX3, grossly intact for the purposes of this session Judgment and insight: Improving mildly Assessment: Depressive disorder unspecified, rule out bipolar depression Anxiety disorder unspecified Opioid dependence, currently on agonist therapy Alcohol abuse nicotine dependence Plan: -Patient continues to meet criteria for inpatient psychiatric admission for symptom stabilization and safety. Patient has signed adult voluntary form and medication consent and was placed in patient's chart. -Medications: Continue with Seroquel 50 mg twice a day + 100 mg daily at bedtime for mood stabilization. Continue with doxepin 20 mg daily at bedtime for insomnia. Increased Cymbalta 60mg bid. Continue with Lamictal to 100mg bid for mood stabilization/depression. Increased BuSpar 20 mg 3 times a day once again for anxiety. -Continue with Zofran when necessary for nausea. Continue with Imodium when necessary for diarrhea. -Continue with methadone at her home dose of 145 mg being dosed daily. -EKG checked on 02/10/2020 - QTc interval at 457 with normal sinus rhythm. -Echocardiogram was negative, and abdominal ultrasound did not reveal any ascites. Continue with hydrochlorothiazide as per internal medicine. -When necessary Ativan and Geodon for agitation/aggression. -NRT - nicotine patch -SW on board for discharge planning. Encouraged the patient to participate in milieu. Likely option for discharge will be to a sober house in [place], [place] with methadone dosing at [facility]. Likely discharge tomorrow if patient has a bed available.
[2020-02-23] MEDS: LORazepam 0.5 MG TAB PO PRN (12:13)
[2020-02-23] MEDS: DOXEPIN 10 MG CAP PO SCH (20:17)
[2020-02-23] MEDS: QUEtiapine 100 MG TAB PO SCH (20:18)
[2020-02-24] MEDS: LEVOTHYROXINE 75 MCG TAB PO SCH (06:14)
[2020-02-24] MEDS: NICOTINE 7MG/24HR PATCH TRANSDERM SCH (08:01)
[2020-02-24] MEDS: busPIRone HCl 10 MG TAB PO SCH ×3 (08:01→21:13)
[2020-02-24] MEDS: QUEtiapine 50 MG TAB PO SCH ×3 (08:01→20:38)
[2020-02-24] MEDS: hydroCHLOROthiazide 25 MG TAB PO SCH (08:01)
[2020-02-24] MEDS: lamoTRIgine 100 MG TAB PO SCH ×2 (08:01→20:38)
[2020-02-24] MEDS: DULoxetine HCL 60 MG CAPSULE.DR PO SCH ×2 (08:01→20:39)
[2020-02-24] MEDS: DICYCLOMINE 20 MG TAB PO SCH ×3 (08:01→21:13)
[2020-02-24] MEDS: MULTIVITAMINS, THERA 1 EACH TAB PO SCH (08:01)
[2020-02-24] MEDS: PANTOPRAZOLE 40 MG TABLET PO SCH (08:01)
[2020-02-24] MEDS: GABAPENTIN 100 MG CAP PO SCH ×3 (08:03→21:14)
[2020-02-24] MEDS: METHADONE 10 MG TAB PO SCH (08:04)
--- NOTE | 2020-02-24 09:06 | P.PN ---
Progress Note - Text Progress Note Date: 02/24/20 Interval History: Patient was seen laying in her bed this morning and was directable and agreeable to speak with verse writer in the office. She claims that today she is feeling better overall in terms of her mood and anxiety once again. She states that she slept a bit less last night approximately 6 hours. She states that she did have anxiety this morning and described it as a "panic attack". She does claim that the medications of an helping her and wants to remain on the same medications. She did request to have her Seroquel increased at nighttime back again to 150 mg. She remains hopeful and more positive about her discharge and states that she is expecting a phone call this morning from the sober house but a potential opening. She states that she feels less irritable today. She claims that she has been trying to go to groups and work on her chronic and fleeting suicidal thoughts and coping skills. Patient denies any homical ideations, intent or plan. Patient denies any auditory, visual hallucinations. Patient has been compliant with meds. Mental Status Exam: General Appearance: Patient appears to be overweight, stated age is alert, more directable, and attempts to be cooperative. Fair hygiene and grooming. Behavior: Patient is calmly seated without any agitated behavior. Speech: Patient's speech is fluent and nonpressured. Mood/Affect: Mood is improving mildly, affect is congruent and constricted Suicidality/Homicidality: Patient denies having any homicidal ideation intent or plan. Denies any current suicidal thoughts, No intent or plan. Perceptions: Patient denies any visual hallucinations and denies any auditory hallucinations Though content/process: There is no evidence of any delusional thought content and thought process is linear and goal-directed. Memory and concentration: AOX3, grossly intact for the purposes of this session Judgment and insight: Improving mildly Assessment: Depressive disorder unspecified, rule out bipolar depression Anxiety disorder unspecified Opioid dependence, currently on agonist therapy Alcohol abuse nicotine dependence Plan: -Patient continues to meet criteria for inpatient psychiatric admission for symptom stabilization and safety. Patient has signed adult voluntary form and medication consent and was placed in patient's chart. -Medications: Increased Seroquel 50 mg twice a day + 150 mg daily at bedtime for mood stabilization. Continue with doxepin 20 mg daily at bedtime for insomnia. Continue with Cymbalta 60mg bid. Continue with Lamictal to 100mg bid for mood stabilization/depression. Continue BuSpar 20 mg 3 times a day once again for anxiety. -Continue with Zofran when necessary for nausea. Continue with Imodium when necessary for diarrhea. -Continue with methadone at her home dose of 145 mg being dosed daily. -EKG checked on 02/10/2020 - QTc interval at 457 with normal sinus rhythm. -Echocardiogram was negative, and abdominal ultrasound did not reveal any ascites. Continue with hydrochlorothiazide as per internal medicine. -When necessary Atliset and Renetta for agitation/aggression. -NRT - nicotine patch -SW on board for discharge planning. Encouraged the patient to participate in milieu. Likely option for discharge will be to a sober house in [place], [place] with methadone dosing at [facility]. Likely discharge whenever a bed is available.
[2020-02-24] MEDS: LORazepam 0.5 MG TAB PO PRN (13:36)
[2020-02-24] MEDS: DOXEPIN 10 MG CAP PO SCH (20:38)
[2020-02-25] MEDS: LEVOTHYROXINE 75 MCG TAB PO SCH (06:11)
[2020-02-25] MEDS: busPIRone HCl 10 MG TAB PO SCH ×3 (08:30→20:34)
[2020-02-25] MEDS: DULoxetine HCL 60 MG CAPSULE.DR PO SCH ×2 (08:30→20:33)
[2020-02-25] MEDS: NICOTINE 7MG/24HR PATCH TRANSDERM SCH (08:30)
[2020-02-25] MEDS: DICYCLOMINE 20 MG TAB PO SCH ×3 (08:30→20:33)
[2020-02-25] MEDS: ERGOCALCIFEROL 50,000 UNIT CAP PO SCH (08:30)
[2020-02-25] MEDS: MULTIVITAMINS, THERA 1 EACH TAB PO SCH (08:31)
[2020-02-25] MEDS: hydroCHLOROthiazide 25 MG TAB PO SCH (08:31)
[2020-02-25] MEDS: PANTOPRAZOLE 40 MG TABLET PO SCH (08:31)
[2020-02-25] MEDS: lamoTRIgine 100 MG TAB PO SCH ×2 (08:31→20:33)
[2020-02-25] MEDS: QUEtiapine 50 MG TAB PO SCH ×3 (08:31→20:33)
[2020-02-25] MEDS: METHADONE 10 MG TAB PO SCH (08:33)
[2020-02-25] MEDS: GABAPENTIN 100 MG CAP PO SCH ×3 (08:38→20:33)
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
[2020-02-25] MEDS: LORazepam 0.5 MG TAB PO PRN (13:44)
[2020-02-25] MEDS: ACETAMINOPHEN TAB 325 MG TAB PO PRN (15:13)
[2020-02-25] MEDS: DOXEPIN 10 MG CAP PO SCH (20:33)
[2020-02-26] MEDS: NICOTINE 7MG/24HR PATCH TRANSDERM SCH (08:26)
[2020-02-26] MEDS: lamoTRIgine 100 MG TAB PO SCH ×2 (08:26→21:00)
[2020-02-26] MEDS: PANTOPRAZOLE 40 MG TABLET PO SCH (08:27)
[2020-02-26] MEDS: hydroCHLOROthiazide 25 MG TAB PO SCH (08:27)
[2020-02-26] MEDS: QUEtiapine 50 MG TAB PO SCH ×3 (08:27→21:01)
[2020-02-26] MEDS: DULoxetine HCL 60 MG CAPSULE.DR PO SCH ×2 (08:27→21:00)
[2020-02-26] MEDS: GABAPENTIN 100 MG CAP PO SCH ×3 (08:27→21:00)
[2020-02-26] MEDS: busPIRone HCl 10 MG TAB PO SCH ×3 (08:27→21:01)
[2020-02-26] MEDS: MULTIVITAMINS, THERA 1 EACH TAB PO SCH (08:27)
[2020-02-26] MEDS: DICYCLOMINE 20 MG TAB PO SCH ×3 (08:30→21:01)
[2020-02-26] MEDS: METHADONE 10 MG TAB PO SCH (08:31)
[2020-02-26] MEDS: LEVOTHYROXINE 75 MCG TAB PO SCH (09:32)
--- NOTE | 2020-02-26 09:43 | P.PN ---
Progress Note - Text Progress Note Date: 02/26/20 Interval History: Patient was seen wandering the hallways this morning and was directable and ag reeable to speak with race and sports book writer in the office. She claims that today she is feeling better overall as compared to yesterday. She states that yesterday she was feeling very anxious and upset because "they were trying to discharge me and I couldn't get into the methadone program". She states that there was another methadone program that can take her in Monday. She states that she is feeling more comfortable with the discharge plan at this point. She states that she slept a bit less last night approximately 5 hours as she was anxious about the discharge planning. She continues to state that the medications are helping her and wants to remain on the same doses of her medications. She states that she feels less irritable today. She claims that she has been trying to go to groups and trying to remain positive. Patient denies any homical ideations, intent or plan. Patient denies any auditory, visual hallucinations. Patient has been compliant with meds. Mental Status Exam: General Appearance: Patient appears to be overweight, stated age is alert, more directable, and attempts to be cooperative. Fair hygiene and grooming. Behavior: Patient is calmly seated without any agitated behavior. Speech: Patient's speech is fluent and nonpressured. Mood/Affect: Mood is improving mildly, affect is congruent and constricted Suicidality/Homicidality: Patient denies having any homicidal ideation intent or plan. Denies any current suicidal thoughts, No intent or plan. Perceptions: Patient denies any visual hallucinations and denies any auditory hallucinations Though content/process: There is no evidence of any delusional thought content and thought process is linear and goal-directed. Memory and concentration: AOX3, grossly intact for the purposes of this session Judgment and insight: Improving mildly Assessment: Depressive disorder unspecified, rule out bipolar depression Anxiety disorder unspecified Opioid dependence, currently on agonist therapy Alcohol abuse nicotine dependence Plan: -Patient continues to meet criteria for inpatient psychiatric admission for symptom stabilization and safety. Patient has signed adult voluntary form and medication consent and was placed in patient's chart. -Medications: Continue withSeroquel 50 mg twice a day + 150 mg daily at bedtime for mood stabilization. Continue with doxepin 20 mg daily at bedtime for insomnia. Continue with Cymbalta 60mg bid. Continue with Lamictal to 100mg bid for mood stabilization/depression. Continue BuSpar 20 mg 3 times a day once again for anxiety. -Continue with Zofran when necessary for nausea. Continue with Imodium when necessary for diarrhea. -Continue with methadone at her home dose of 145 mg being dosed daily. -EKG checked on 02/10/2020 - QTc interval at 457 with normal sinus rhythm. -Echocardiogram was negative, and abdominal ultrasound did not reveal any ascites. Continue with hydrochlorothiazide as per internal medicine. -When necessary Lou and Renetta for agitation/aggression. -NRT - nicotine patch -SW on board for discharge planning. Encouraged the patient to participate in milieu. Will discharge tomorrow to [facility] in [place] with methadone dosing at [facility]. Patient's appointment at the methadone clinic will be Monday morning.
[2020-02-26] MEDS: DOXEPIN 10 MG CAP PO SCH (21:01)
[2020-02-27] MEDS: LEVOTHYROXINE 75 MCG TAB PO SCH (06:23)
[2020-02-27 06:39] VITALS: RESP 16; TEMP 97.5
[2020-02-27] MEDS: NICOTINE 7MG/24HR PATCH TRANSDERM SCH (08:46)
[2020-02-27] MEDS: DICYCLOMINE 20 MG TAB PO SCH (08:48)
[2020-02-27] MEDS: GABAPENTIN 100 MG CAP PO SCH (08:48)
[2020-02-27] MEDS: QUEtiapine 50 MG TAB PO SCH (08:48)
[2020-02-27] MEDS: DULoxetine HCL 60 MG CAPSULE.DR PO SCH (08:48)
[2020-02-27] MEDS: PANTOPRAZOLE 40 MG TABLET PO SCH (08:49)
[2020-02-27] MEDS: lamoTRIgine 100 MG TAB PO SCH (08:49)
[2020-02-27] MEDS: busPIRone HCl 10 MG TAB PO SCH (08:49)
[2020-02-27] MEDS: ERGOCALCIFEROL 50,000 UNIT CAP PO SCH (08:49)
[2020-02-27] MEDS: hydroCHLOROthiazide 25 MG TAB PO SCH (08:49)
[2020-02-27] MEDS: MULTIVITAMINS, THERA 1 EACH TAB PO SCH (08:49)
[2020-02-27] MEDS: METHADONE 10 MG TAB PO SCH (08:50)
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
[2020-02-27 09:06] VITALS: BP 149/64; PULSE 110
== END 2020-02-27 11:27 | DRG 885 ==
LOC: EC 14:24 → 3MHU 02-09 13:56
PROVIDERS: ADMIT Psychiatry & Neurology Psychiatry; ATTEND Psychiatry & Neurology Psychiatry
DX: F33.3 Major depressive disorder, recurrent, severe with psychotic symptoms (principal); R45.851 Suicidal ideations; F10.139 Alcohol abuse with withdrawal, unspecified; F11.23 Opioid dependence with withdrawal; Z68.42 Body mass index [BMI] 45.0-49.9, adult; E66.01 Morbid (severe) obesity due to excess calories; Z91.5 Personal history of self-harm; F41.9 Anxiety disorder, unspecified; Z20.828 Contact with and (suspected) exposure to other viral communicable diseases; F12.90 Cannabis use, unspecified, uncomplicated; E03.9 Hypothyroidism, unspecified; G47.00 Insomnia, unspecified; R45.87 Impulsiveness; M54.30 Sciatica, unspecified side; F17.210 Nicotine dependence, cigarettes, uncomplicated; Z71.6 Tobacco abuse counseling; Z71.51 Drug abuse counseling and surveillance of drug abuser; Z71.41 Alcohol abuse counseling and surveillance of alcoholic; Z79.890 Hormone replacement therapy; Z79.899 Other long term (current) drug therapy; Z87.19 Personal history of other diseases of the digestive system; Z90.49 Acquired absence of other specified parts of digestive tract; Z56.0 Unemployment, unspecified; Z87.442 Personal history of urinary calculi; Z62.810 Personal history of physical and sexual abuse in childhood; Z98.890 Other specified postprocedural states; Z71.3 Dietary counseling and surveillance; Z88.1 Allergy status to other antibiotic agents; Z88.5 Allergy status to narcotic agent; Z88.8 Allergy status to other drugs, medicaments and biological substances
CPT/HCPCS: 76705; 80048; 80053; 80061; 80306; 81001; 81025; 82043; 82075; 82570; 83036; 83735; 84443; 85025; 85610; 87635; 93005; 93306; 99285